=== PATIENT | female | born 1955 | race African-American/Black ===

== ENCOUNTER 2017-09-20 14:20 | Emergency (ER) | payer MEDICARE, OTHER ==
[2017-09-20 15:21] LABS: #Basophils 0.1 thou/uL (0.0-0.2); #Eosinphils 0.2 thou/uL (0.0-0.7); #Lymphocytes 2.7 thou/uL (1.20-3.40); #Monocytes 0.9 thou/uL (0.11-0.59); #Neutrophils 3.5 thou/uL (1.40-6.50); %Basophils 1.4 % (0.0-1.0); %Eosinophils 3.3 % (0.0-10.0); %Lymphocytes 36.2 % (21.0-51.0); %Monocytes 11.6 % (0.0-10.0); Hematocrit 36.5 % (36.0-47.0); Mean Platelet Volume 8.8 fL (7.4-10.4); Red Blood Cell (RBC) Count 3.96 mill/uL (4.20-5.40); White Blood Cell (WBC) Count 7.4 thou/uL (4.8-10.8)
[2017-09-20 15:42] LABS: ALT (SGPT) 15 U/L (8-55); AST (SGOT) 16 U/L (5-34); Alkaline Phosphatase 30 U/L (40-150); Anion Gap 14 mmol/L (10-20); BUN (Urea Nitrogen) 17 mg/dL (9.8-20.1); Bilirubin, Total 0.4 mg/dL (0.2-1.2); Calc. Creatinine Clearance 0 mL/min (70-130); Calcium 9.7 mg/dL (7.8-10.44); Carbon Dioxide 28 mmol/L (23-31); Chloride 103 mmol/L (98-107); Estimated GFR-MDRD 86; Globulin 3.1 g/dL (2.4-3.5); Lipase 7 U/L (8-78); Protein, Total 6.7 g/dL (6.0-8.3)
== END 2017-09-20 16:00 | disposition home or self-care (01) ==
LOC: ERS 14:20
DX: R19.7 Diarrhea, unspecified (principal); L73.9 Follicular disorder, unspecified; E11.9 Type 2 diabetes mellitus without complications; E78.5 Hyperlipidemia, unspecified; I10 Essential (primary) hypertension; G43.909 Migraine, unspecified, not intractable, without status migrainosus; F41.9 Anxiety disorder, unspecified; Z86.73 Personal history of transient ischemic attack (TIA), and cerebral infarction without residual deficits; Z79.4 Long term (current) use of insulin
CPT/HCPCS: 36415; 80053; 83690; 85025; 99284

== ENCOUNTER 2017-09-22 18:27 | Emergency (ER) | payer MEDICARE, OTHER ==
[2017-09-22 19:27] LABS: Hematocrit 37.9 % (36.0-47.0); Red Blood Cell (RBC) Count 4.06 mill/uL (4.20-5.40); White Blood Cell (WBC) Count 6.9 thou/uL (4.8-10.8)
[2017-09-22 19:40] LABS: Lactic Acid - Sepsis 3.2 mmol/L (0.5-2.2)
[2017-09-22 19:47] LABS: ALT (SGPT) 16 U/L (8-55); AST (SGOT) 12 U/L (5-34); Alkaline Phosphatase 36 U/L (40-150); Anion Gap 13 mmol/L (10-20); BUN (Urea Nitrogen) 18 mg/dL (9.8-20.1); Band 2 % (5-11); Bilirubin, Total 0.4 mg/dL (0.2-1.2); Calc. Creatinine Clearance 0 mL/min (70-130); Calcium 10.1 mg/dL (7.8-10.44); Carbon Dioxide 30 mmol/L (23-31); Chloride 97 mmol/L (98-107); Estimated GFR-MDRD 58; Globulin 3.2 g/dL (2.4-3.5); Neutrophil 54 % (42-75); Polychromasia SLIGHT = 2-3 cells (100X) (0-2/hpf); Reactive Lymphocytes 5 % (0-10)
[2017-09-22] MEDS ORDERED: Insulin Regular 300 UNITS/3 ML VIAL ONE (20:05)
[2017-09-22 20:25] LABS: Bilirubin Negative (Negative); Blood, Urine Negative (Negative); Glucose, Urine (Dipstick) >=1000 mg/dL (Negative); Ketone, Urine Negative (Negative); Nitrite Negative (Negative); Protein, Urine (Dipstick) Trace mg/dL (Neg-Trace)
--- NOTE | 2017-09-22 20:48 | RAD ---
LEFT FOOT THREE VIEWS: Comparison: 07-18-17 FINDINGS: Stable pes planus deformity of the first digit. Stable degenerative change of the midfoot with osteo phyte formation. There is associated dorsal soft tissue swelling. Stable spurring of the plantar anthony caneus. Lisfranc alignment is maintained. Fracture is not appreciated. Stable positioning of the sec ond to fifth digit. IMPRESSION: Stable chronic changes. POS: [facility]
[2017-09-22] MEDS ORDERED: HYDROcodone/Acetaminophen 5/325 mg Tablet ONE (21:57)
== END 2017-09-22 22:09 | disposition home or self-care (01) ==
LOC: ERS 18:27
DX: E11.65 Type 2 diabetes mellitus with hyperglycemia (principal); I10 Essential (primary) hypertension; G43.909 Migraine, unspecified, not intractable, without status migrainosus; F41.9 Anxiety disorder, unspecified; E78.5 Hyperlipidemia, unspecified; Z86.73 Personal history of transient ischemic attack (TIA), and cerebral infarction without residual deficits; Z79.4 Long term (current) use of insulin; Z79.899 Other long term (current) drug therapy
CPT/HCPCS: 36415; 36416; 80053; 81003; 83605; 85025; 87086; 96361; 96374; J1815

== ENCOUNTER 2017-10-20 13:16 | Emergency (ER) | payer MEDICARE, OTHER ==
[2017-10-20 14:04] LABS: Bilirubin Negative (Negative); Blood, Urine Small (Negative); Glucose, Urine (Dipstick) >=1000 mg/dL (Negative); Ketone, Urine Trace mg/dL (Negative); Nitrite Negative (Negative); Protein, Urine (Dipstick) Trace mg/dL (Neg-Trace); Urobilinogen 0.2 mg/dL (0.2-1.0)
[2017-10-20 14:07] LABS: Bacteria/HPF None Seen HPF (None Seen); Hyaline Casts/LPF 0-3 HYALINE CAST LPF (0-3 Hyaline); Squamous Epithelial 0-3 HPF (0-3); WBC/HPF 0-3 HPF (0-3)
== END 2017-10-20 14:29 | disposition home or self-care (01) ==
LOC: ERS 13:16
DX: R10.9 Unspecified abdominal pain (principal); E11.9 Type 2 diabetes mellitus without complications; E78.5 Hyperlipidemia, unspecified; I10 Essential (primary) hypertension; G43.909 Migraine, unspecified, not intractable, without status migrainosus; F41.9 Anxiety disorder, unspecified; Z79.4 Long term (current) use of insulin; Z86.73 Personal history of transient ischemic attack (TIA), and cerebral infarction without residual deficits; Z79.899 Other long term (current) drug therapy
CPT/HCPCS: 81003; 81015; 99284

== ENCOUNTER 2017-11-02 10:37 | Emergency (ER) | payer MEDICARE, OTHER ==
[2017-11-02] MEDS ORDERED: Morphine 4 MG/ML VIAL ONE (13:05)
[2017-11-02 14:26] LABS: Bilirubin Negative (Negative); Blood, Urine Negative (Negative); Glucose, Urine (Dipstick) 250 mg/dL (Negative); Ketone, Urine 15 mg/dL (Negative); Nitrite Negative (Negative); Protein, Urine (Dipstick) 100 mg/dL (Neg-Trace)
[2017-11-02 14:29] LABS: Bacteria/HPF None Seen HPF (None Seen); Hyaline Casts/LPF 0-3 HYALINE CAST LPF (0-3 Hyaline); RBC/HPF 0-3 HPF (0-3); Squamous Epithelial 0-3 HPF (0-3); WBC/HPF 0-3 HPF (0-3)
--- NOTE | 2017-11-02 14:43 | RAD ---
3 VIEWS LUMBAR SPINE: Date: 11/02/17 HISTORY: Back pain. FINDINGS: AP, lateral, and coned-down views of lumbar spine obtained. Images demonstrate five non-rib bearing lumbar vertebra. Disc space height loss is seen at multiple l evels. Anterior osteophytes seen throughout the lumbar spine. No evidence of acute fractures, subluxa tions, or bony lesions seen. IMPRESSION: No evidence of acute lumbar spine abnormalities. POS: [facility]
--- NOTE | 2017-11-02 15:07 | CT ---
NONCONTRAST ENHANCED CT IMAGES OF ABODMEN AND PELVIS: Date: 11/02/17 HISTORY: 62-year-old with history of back pain. FINDINGS: Noncontrast enhanced CT images of abdomen and pelvis demonstrates the lung bases to be unremarkable. No evidence of free intraperitoneal air seen. The liver and spleen are unremarkable. The pancreas is unremarkable. A gallbladder is not visualized. Adrenal glands are unremarkable. The kidneys are unremarkable. No evidence of renal calculi seen. No evidence of hydroureteronephrosis is seen. No evidence of periaortic lymphadenopathy is seen. No dil ated loops of small bowel or colon present. IMPRESSION: Unremarkable noncontrast enhanced CT images of the abdomen and pelvis. Incidentally noted multilevel lumbar disc degenerative and spinal stenotic changes seen. POS: [facility]
== END 2017-11-02 15:59 | disposition home or self-care (01) ==
LOC: ERS 10:37
DX: M54.16 Radiculopathy, lumbar region (principal); E78.5 Hyperlipidemia, unspecified; I10 Essential (primary) hypertension; G43.909 Migraine, unspecified, not intractable, without status migrainosus; F41.9 Anxiety disorder, unspecified; E11.9 Type 2 diabetes mellitus without complications; Z86.73 Personal history of transient ischemic attack (TIA), and cerebral infarction without residual deficits; Z79.899 Other long term (current) drug therapy; Z79.4 Long term (current) use of insulin
CPT/HCPCS: 72100; 74176; 81003; 81015; 96372; 99284; J2270

== ENCOUNTER 2017-11-02 18:36 | Emergency (ER) | payer MEDICARE, OTHER | END 2017-11-02 21:05 | disposition home or self-care (01) | LOC: ERS 18:36 | DX: R11.0 Nausea (principal); R10.9 Unspecified abdominal pain; T39.1X5A Adverse effect of 4-Aminophenol derivatives, initial encounter; T40.2X5A Adverse effect of other opioids, initial encounter; E11.9 Type 2 diabetes mellitus without complications; E78.5 Hyperlipidemia, unspecified; I10 Essential (primary) hypertension; G43.909 Migraine, unspecified, not intractable, without status migrainosus; F41.9 Anxiety disorder, unspecified; Z79.4 Long term (current) use of insulin; Z79.899 Other long term (current) drug therapy | CPT/HCPCS: 99284 ==

== ENCOUNTER 2017-11-13 16:44 | Emergency (ER) | payer MEDICARE, OTHER ==
[2017-11-13] MEDS ORDERED: Morphine 4 MG/ML VIAL ONE (20:00)
[2017-11-13] MEDS ORDERED: Dexamethasone 10 MG/ML VIAL ONE (20:01)
== END 2017-11-13 20:28 | disposition home or self-care (01) ==
LOC: ERS 16:44
DX: G89.29 Other chronic pain (principal); M54.42 Lumbago with sciatica, left side; M54.41 Lumbago with sciatica, right side; E78.5 Hyperlipidemia, unspecified; I10 Essential (primary) hypertension; Z86.73 Personal history of transient ischemic attack (TIA), and cerebral infarction without residual deficits; G43.909 Migraine, unspecified, not intractable, without status migrainosus; F41.9 Anxiety disorder, unspecified; Z79.4 Long term (current) use of insulin; Z79.899 Other long term (current) drug therapy
CPT/HCPCS: 96372; J1100; J2270

== ENCOUNTER 2017-11-20 04:02 | Emergency (ER) | payer MEDICARE, OTHER ==
[2017-11-20] MEDS ORDERED: Dexamethasone 4 MG TAB ONE (05:09)
[2017-11-20] MEDS ORDERED: HYDROcodone/Acetaminophen 5/325 mg Tablet ONE (05:10)
== END 2017-11-20 05:20 | disposition home or self-care (01) ==
LOC: ERS 04:02
DX: M54.41 Lumbago with sciatica, right side (principal); E11.9 Type 2 diabetes mellitus without complications; E78.5 Hyperlipidemia, unspecified; I10 Essential (primary) hypertension; G43.909 Migraine, unspecified, not intractable, without status migrainosus; F41.9 Anxiety disorder, unspecified; Z86.73 Personal history of transient ischemic attack (TIA), and cerebral infarction without residual deficits; Z79.4 Long term (current) use of insulin; Z79.899 Other long term (current) drug therapy
CPT/HCPCS: 99283; J8540

== ENCOUNTER 2017-12-12 23:59 | Emergency (ER) | payer MEDICARE, OTHER | END 2017-12-13 01:33 | disposition home or self-care (01) | LOC: ERS 23:59 | DX: L03.116 Cellulitis of left lower limb (principal); L03.115 Cellulitis of right lower limb; E11.42 Type 2 diabetes mellitus with diabetic polyneuropathy; I10 Essential (primary) hypertension; Z79.4 Long term (current) use of insulin; Z79.899 Other long term (current) drug therapy | CPT/HCPCS: 99283 ==

== ENCOUNTER 2017-12-15 23:17 | Observation (INO) | payer MEDICARE ==
[2017-12-16 00:58] LABS: #Basophils 0.1 thou/uL (0.0-0.2); #Eosinphils 0.2 thou/uL (0.0-0.7); #Lymphocytes 2.5 thou/uL (1.20-3.40); #Monocytes 0.6 thou/uL (0.11-0.59); #Neutrophils 1.9 thou/uL (1.40-6.50); %Eosinophils 3.9 % (0.0-10.0); %Lymphocytes 46.9 % (21.0-51.0); %Monocytes 11.5 % (0.0-10.0); %Neutrophils 35.7 % (42.0-75.0); Hemoglobin 11.8 g/dL (12.0-16.0); Mean Corpuscular HGB CONC 34.4 g/dL (32.0-36.0); Mean Corpuscular Volume 93.1 fl (81.0-99.0); Mean Platelet Volume 8.9 fL (7.4-10.4); Platelet Count 190 thou/uL (130-400); Red Blood Cell (RBC) Count 3.69 mill/uL (4.20-5.40); White Blood Cell (WBC) Count 5.4 thou/uL (4.8-10.8)
[2017-12-16 01:20] LABS: ALT (SGPT) 7 U/L (8-55); AST (SGOT) 19 U/L (5-34); Albumin 3.4 g/dL (3.4-4.8); Alkaline Phosphatase 38 U/L (40-150); Anion Gap 13 mmol/L (10-20); BUN (Urea Nitrogen) 19 mg/dL (9.8-20.1); Bilirubin, Total 0.3 mg/dL (0.2-1.2); Calc. Creatinine Clearance 0 mL/min (70-130); Calcium 9.6 mg/dL (7.8-10.44); Carbon Dioxide 28 mmol/L (23-31); Chloride 102 mmol/L (98-107); Estimated GFR-MDRD Greater than 90; Globulin 3.1 g/dL (2.4-3.5); Glucose 140 mg/dL (80-115); Lipase 6 U/L (8-78); Potassium 3.3 mmol/L (3.5-5.1); Protein, Total 6.5 g/dL (6.0-8.3); Sodium 140 mmol/L (136-145)
[2017-12-16 01:23] LABS: CKMB 4.3 ng/mL (0-6.6); Troponin I 0.031 ng/mL (< 0.028)
[2017-12-16] MEDS ORDERED: Aspirin 325 MG TAB ONE (02:23)
[2017-12-16] MEDS ORDERED: Ondansetron HCl/PF 4 MG/2 ML Vial IVP PRN (03:08)
[2017-12-16] MEDS ORDERED: Acetaminophen 325 MG TAB PO PRN (03:08)
[2017-12-16] MEDS ORDERED: Ondansetron ODT 4 MG TAB SL PRN (03:08)
[2017-12-16 03:29] VITALS: BMI 32.9
[2017-12-16 05:32] LABS: Troponin I 0.029 ng/mL (< 0.028)
--- NOTE | 2017-12-16 07:50 | RAD ---
CHEST PA AND LATERAL: Date: 12/16/17 HISTORY: 62-year-old female with history of bilateral leg pain and diarrhea, sciatic nerve pain, chest pain. COMPARISON: 11/30/13. FINDINGS: Heart size is normal. The lungs are clear. Mild stable right hemidiaphragm elevation. Atherosclerosis of aorta. IMPRESSION: No acute intrathoracic disease. Atherosclerosis of aorta. Stable from prior study. POS: [facility]
[2017-12-16 07:56] LABS: Troponin I 0.032 ng/mL (< 0.028)
[2017-12-16] MEDS ORDERED: Ondansetron ODT 4 MG TAB PO PRN (12:56)
[2017-12-16] MEDS ORDERED: Clopidogrel Bisulfate 75 MG TAB PO SCH (14:30)
[2017-12-16] MEDS ORDERED: Lisinopril 20 MG TAB PO SCH (14:30)
[2017-12-16] MEDS ORDERED: Insulin Regular 300 UNITS/3 ML VIAL SC PRN (18:26)
[2017-12-16] MEDS ORDERED: Dextrose 50% Abboject 50 ML SYRINGE IVP PRN (18:26)
[2017-12-16] MEDS ORDERED: Dextrose 5% in Water 1,000 ML IV PRN (18:26)
[2017-12-16] MEDS ORDERED: Furosemide 40 MG TAB PO SCH (18:30)
[2017-12-16] MEDS: Fluticasone Propionate Nasal Spray 16 gm Bottle NASAL SCH (18:50)
[2017-12-16] MEDS: Potassium Chloride 20 MEQ TAB PO SCH ×2 (18:53→22:08)
[2017-12-16] MEDS: Clindamycin 150 MG CAP PO SCH (18:53)
[2017-12-16] MEDS: Insulin Regular 300 UNITS/3 ML VIAL SC PRN (18:55)
[2017-12-16] MEDS: Insulin Detemir 100 UNITS/ML 50 UNITS in Pre-Filled Syringe SC SCH (20:56)
[2017-12-16] MEDS: Rosuvastatin 20 MG TAB PO SCH (20:57)
[2017-12-16 21:26] LABS: Glucose Accucheck Confirmation 358 mg/dl (80-115)
[2017-12-16] MEDS: Acetaminophen/Codeine 30-300mg Tablet PO PRN (22:08)
[2017-12-17] MEDS: Fluticasone Propionate Nasal Spray 16 gm Bottle NASAL SCH ×4 (01:49→16:24)
[2017-12-17] MEDS: Acetaminophen/Codeine 30-300mg Tablet PO PRN (04:56)
[2017-12-17 05:27] LABS: Hemoglobin A1c 11.1 % (4.0-6.0)
[2017-12-17 05:53] LABS: Anion Gap 9 mmol/L (10-20); BUN (Urea Nitrogen) 10 mg/dL (9.8-20.1); Calc. Creatinine Clearance 130 mL/min (70-130); Calcium 8.9 mg/dL (7.8-10.44); Carbon Dioxide 29 mmol/L (23-31); Cardiac Risk 4.9 (Less than 4.5); Chloride 106 mmol/L (98-107); Cholesterol 196 mg/dl (< 200 Desired); Estimated GFR-MDRD Greater than 90; Glucose 223 mg/dL (80-115); HDL Cholesterol 40 mg/dL (>60 Neg Risk); LDL Cholesterol, Calculated 117 mg/dL; Potassium 3.4 mmol/L (3.5-5.1); Sodium 141 mmol/L (136-145); Triglycerides 193 mg/dL (Less than 150)
--- NOTE | 2017-12-17 05:54 | HP ---
DATE OF ADMISSION: 12/16/2017 CHIEF COMPLAINT: Chest pain and leg pain and swelling. HISTORY OF PRESENT ILLNESS: Ms. Berg is a 62-year-old -French female with past medical h istory of diabetes mellitus, hypertension, chronic leg pain, came because of swollen feet and chest p ain. The patient's pain is in the chest and retrosternal area, pressure-like, nonradiating, not asso ciated any shortness of breath, no palpitations, no dizziness, no nausea or vomiting. The patient al so noticed swelling in both lower extremities, which is getting worse and also her toes, there is philip dence of infection as well. The patient was already started on antibiotics before. In view of risk factors, patient is being admitted to rule out myocardial infarction. PAST MEDICAL HISTORY: 1. Diabetes mellitus, insulin-dependent. 2. Hypertension. 3. Hyperlipidemia. 4. History of cerebrovascular accident. 5. History of migraine headaches. PAST SURGICAL HISTORY: 1. Status post appendectomy. 2. Status post hysterectomy. 3. Status post thoracotomy. 4. Status post tonsillectomy. CURRENT MEDICATIONS: Tylenol No. 3 q.i.d. p.r.n., Plavix 75 mg daily, Farxiga 5 mg daily, Lantus ins ulin 15 units at bedtime and also on sliding scale, lisinopril 20 mg daily, Zofran p.r.n., Crestor 40 mg daily, spironolactone hydrochlorothiazide 1 tablet daily. ALLERGIES: SULFA. FAMILY HISTORY: Nothing of interest. SOCIAL HISTORY: The patient lives with family. No history of smoking. No history of alcohol intake . REVIEW OF SYSTEMS: Cardiovascular: Has chest pain. No shortness of breath. Respiratory: No fever or cough. Gastrointestinal: No nausea, noabdominal pain. Genitourinary: No dysuria. Central ner vous system: No headache, no dizziness. PHYSICAL EXAMINATION: GENERAL: The patient is alert, awake, oriented x3. VITAL SIGNS: Temperature 98, pulse 78, respirations 20, blood pressure 120/70. HEENT: Head is normocephalic, atraumatic. Pupils equal and reactive to light. Nasopharynx is pale and dry. Hard and soft palate, no lesions seen. SKIN: Skin turgor decreased. NECK: Supple. No JVD. LUNGS: Bilateral air entry, no rales, no rhonchi. HEART: S1, S2 regular. ABDOMEN: Soft, no distention, no tenderness. No organomegaly. CENTRAL NERVOUS SYSTEM: No focal deficits. EXTREMITIES: There is 2+ pitting edema both lower legs. Toes, there is a mild swelling there with s ome erythema and tenderness. LABORATORY DATA: CBC shows WBC 5.5, hemoglobin 11.8, hematocrit 34, platelets 190. Metabolic panel: Sodium 140, potassium 3.3, chloride 102, CO2 of 28, BUN 8, creatinine 0.9, glucose 140. CK-MB 4.0, troponin I 0.031. BNP 67. Chest x-ray no acute intrathoracic disease. EKG shows normal sinus rhyt hm, no acute ST-T wave changes seen. ASSESSMENT: 1. Chest pain, rule out myocardial infarction. 2. Leg edema. 3. Infected toes. 4. Insulin-dependent diabetes mellitus. 5. Hypertension. 6. Hyperlipidemia. 7. Chronic leg pain. 8. History of cerebrovascular accident. PLAN: 1. Vital signs q.4 hours. 2. Activity: As tolerated. 3. Allergies: No known drug allergies. 4. Hep-Lock. 5. Troponin I q.8 hours x2. 6. Accu-Chek a.c. and at bedtime, sliding scale mild with regular insulin. 7. Continue her home medications. 8. Cardiolite stress test in the morning. 9. Clindamycin 300 mg 3 times daily.
[2017-12-17 07:38] LABS: Glucose Accucheck Confirmation 190 mg/dl (80-115)
[2017-12-17] MEDS ORDERED: Spironolactone/Hctz 25 MG/25 MG TABLET PO SCH (09:00)
[2017-12-17] MEDS ORDERED: FARXIGA 5 MG PO SCH (09:00)
[2017-12-17] MEDS ORDERED: Clopidogrel Bisulfate 75 MG TAB ONE (10:45)
[2017-12-17] MEDS: Lisinopril 20 MG TAB PO SCH (10:50)
[2017-12-17] MEDS: Clopidogrel Bisulfate 75 MG TAB PO SCH (10:51)
[2017-12-17] MEDS: Clindamycin 150 MG CAP PO SCH ×3 (10:51→21:06)
[2017-12-17 11:56] LABS: Glucose Accucheck Confirmation 157 mg/dl (80-115)
[2017-12-17] MEDS: Insulin Regular 300 UNITS/3 ML VIAL SC PRN (16:36)
[2017-12-17 17:34] LABS: Glucose Accucheck Confirmation 313 mg/dl (80-115)
[2017-12-17] MEDS: Rosuvastatin 20 MG TAB PO SCH (21:07)
[2017-12-17] MEDS: Insulin Detemir 100 UNITS/ML 50 UNITS in Pre-Filled Syringe SC SCH (21:07)
[2017-12-17 21:24] LABS: Glucose Accucheck Confirmation 240 mg/dl (80-115)
[2017-12-18] MEDS: Fluticasone Propionate Nasal Spray 16 gm Bottle NASAL SCH ×4 (03:30→20:36)
[2017-12-18] MEDS: Clindamycin 150 MG CAP PO SCH ×3 (05:47→20:23)
[2017-12-18] MEDS: Clopidogrel Bisulfate 75 MG TAB PO SCH (05:48)
[2017-12-18 07:48] LABS: Glucose Accucheck Confirmation 101 mg/dl (80-115)
[2017-12-18] MEDS ORDERED: Sodium Chloride 0.9% 10 ML ONE (07:57)
[2017-12-18] MEDS ORDERED: Hydrochlorothiazide 25 MG TAB PO SCH (09:00)
[2017-12-18] MEDS ORDERED: Spironolactone 25 MG TAB PO SCH (09:00)
[2017-12-18 12:10] LABS: Glucose Accucheck Confirmation 233 mg/dl (80-115)
[2017-12-18] MEDS: Lisinopril 20 MG TAB PO SCH (12:42)
[2017-12-18] MEDS: Insulin Regular 300 UNITS/3 ML VIAL SC PRN ×2 (12:59→16:15)
[2017-12-18] MEDS ORDERED: ADENOSINE 60 MG/20 ML VIAL ONE (15:47)
[2017-12-18 17:27] LABS: Glucose Accucheck Confirmation 309 mg/dl (80-115)
[2017-12-18] MEDS: Rosuvastatin 20 MG TAB PO SCH (20:23)
[2017-12-18] MEDS: Insulin Detemir 100 UNITS/ML 50 UNITS in Pre-Filled Syringe SC SCH (20:23)
[2017-12-18] MEDS ORDERED: Furosemide 40 MG TAB PO SCH (20:30)
[2017-12-18 21:36] LABS: Glucose Accucheck Confirmation 303 mg/dl (80-115)
[2017-12-19] MEDS: Fluticasone Propionate Nasal Spray 16 gm Bottle NASAL SCH ×3 (03:25→11:56)
[2017-12-19] MEDS: Clopidogrel Bisulfate 75 MG TAB PO SCH (05:49)
[2017-12-19 08:15] LABS: Glucose Accucheck Confirmation 113 mg/dl (80-115)
[2017-12-19] MEDS ORDERED: Hydrochlorothiazide 25 MG TAB PO SCH (09:00)
[2017-12-19] MEDS ORDERED: Furosemide 40 MG TAB PO SCH (09:00)
--- NOTE | 2017-12-19 11:46 | NM ---
CARDIAC SPECT: CLINICAL HISTORY: 62-year-old female with chest pain. TECHNIQUE: A myocardial perfusion scan was performed using the single isotope two day protocol with 33 mCi techn etium-99m sestamibi injected intravenously for both stress and rest images. Pharmacologic stress with Adenosine was monitored and interpreted by Dr. Morel. FINDINGS: Homogeneous tracer distribution is seen in the myocardial segments on stress and rest images without fixed or reversible defects. GATED SPECT LVEF: 68%. WALL MOTION EXAM: Normal. IMPRESSION: Normal myocardial perfusion scan. POS: [facility]
[2017-12-19 11:55] VITALS: BP 130/66; TEMP 98.4
[2017-12-19] MEDS: Lisinopril 20 MG TAB PO SCH (11:55)
[2017-12-19] MEDS ORDERED: Spironolactone 25 MG TAB PO SCH (12:00)
--- NOTE | 2017-12-20 15:04 | DIS ---
DATE OF ADMISSION: 12/16/2017 DATE OF DISCHARGE: 12/19/2017 ADMITTING DIAGNOSES: 1. Chest pain, rule out myocardial infarction. 2. Leg edema. 3. Infected toes. 4. Insulin-dependent diabetes mellitus. 5. Hypertension. 6. Hyperlipidemia. 7. Chronic leg pain. 8. Status post cerebrovascular accident. FINAL DIAGNOSES: 1. Chest pain, no evidence of acute myocardial infarction, negative Cardiolite stress test. 2. Leg edema, improved. 3. Insulin-dependent diabetes mellitus, uncontrolled. 4. Hypertension. 5. Hyperlipidemia. 6. Chronic leg pain. BRIEF SUMMARY OF HOSPITAL COURSE: Ms. Berg is a 62-year-old - [place] Islander female admitted because of chest pain. The patient has risk factors. In view of that, she was admitted to rule out myocardial infarction. Serial cardiac enzymes were done and they were within normal limits. A Cardiolite stress test was done and it was reported as negative for ischemia. The patient did not have any more chest pain, the leg edema also improved with Lasix. In view of improvement, the patient was discharged. At the time of discharge, she was stable. Her vital signs were stable. Lungs were clear. Heart sounds regular. Abdomen soft, nontender. Bowel sounds present. DISCHARGE MEDICATIONS: Include Lantus insulin 50 units daily, lisinopril 20 mg daily, Plavix 75 mg daily, Tylenol with Codeine p.r.n., Zofran p.r.n., spironolactone with hydrochlorothiazide daily, Crestor 40 mg daily, Farxiga 5 mg daily, Flonase nasal spray daily, clindamycin t.i.d. 300 mg, The patient also takes Humalog insulin 25 units 3 times daily. DISCHARGE INSTRUCTIONS: She will continue with ADA diet and come for followup in 2 weeks. JUAN J
--- NOTE | 2018-01-20 14:07 | STRESS ---
Acquisition Time: 2017-12-18 09:20:35 Total Exercise Time: 00:04:00 Test Indications: CHEST PAIN Medications: Protocol: ADENOSINE Max HR: 090 BPM 57% of Pred: 156 BPM Max BP: 144/084 mmHG Max Work Load: 1.0 METS RESTING ECG: NORMAL SINUS RHYTHM AT 74 BPM WITH PACs SYMPTOMS: NONE APPROPRIATE BLOOD PRESSURE RESPONSE FOR ADENOSINE ECTOPY: NONE ECG RESPONSE: NO SIGNIFICANT CHANGES INTERPRETATION: NEGATIVE ECG/AWAIT NUCLEAR IMAGES FOR DEFINITIVE DIAGNOSIS Confirmed by DR. Donnie CARBALLO ([id number]), research editor PATIENCE INFANTE ([id number]) on 01/20/2018 2:07:21 PM Referred By: Lora MADRID Confirmed By:DR. Donnie CARBALLO
== END 2017-12-19 14:20 | disposition home or self-care (01) ==
LOC: ERS 23:17 → INTOOBSV 12-16 01:44 → 2NO 12-16 01:44 → OBSVTOIN 12-16 01:44
PROVIDERS: ADMIT Internal Medicine; ATTEND Internal Medicine
DX: R07.2 Precordial pain (principal); R60.0 Localized edema; L08.9 Local infection of the skin and subcutaneous tissue, unspecified; E10.9 Type 1 diabetes mellitus without complications; I10 Essential (primary) hypertension; E78.5 Hyperlipidemia, unspecified; M79.606 Pain in leg, unspecified; G89.29 Other chronic pain; G43.909 Migraine, unspecified, not intractable, without status migrainosus; Z79.02 Long term (current) use of antithrombotics/antiplatelets; Z79.51 Long term (current) use of inhaled steroids; Z79.4 Long term (current) use of insulin; Z79.899 Other long term (current) drug therapy; Z88.2 Allergy status to sulfonamides; Z88.1 Allergy status to other antibiotic agents; Z90.49 Acquired absence of other specified parts of digestive tract; Z90.710 Acquired absence of both cervix and uterus; Z98.890 Other specified postprocedural states; Z90.89 Acquired absence of other organs; Z86.73 Personal history of transient ischemic attack (TIA), and cerebral infarction without residual deficits
CPT/HCPCS: 71046; 78452; 80048; 80053; 80061; 82553; 82947 ×5; 82962 ×4; 83036; 83690; 83880; 84484 ×2; 85025; 93005; 93017; 99283; 99284; A9500; G0378; 36415; 36416; A4216; J0153; J1815

== ENCOUNTER 2018-01-05 21:41 | Emergency (ER) | payer MEDICARE ==
[2018-01-05 23:14] LABS: #Basophils 0.1 thou/uL (0.0-0.2); #Eosinphils 0.3 thou/uL (0.0-0.7); #Lymphocytes 2.2 thou/uL (1.20-3.40); #Monocytes 0.7 thou/uL (0.11-0.59); #Neutrophils 2.3 thou/uL (1.40-6.50); %Basophils 1.4 % (0.0-1.0); %Lymphocytes 39.5 % (21.0-51.0); %Monocytes 12.4 % (0.0-10.0); %Neutrophils 41.8 % (42.0-75.0); Hemoglobin 11.4 g/dL (12.0-16.0); Mean Corpuscular HGB CONC 34.4 g/dL (32.0-36.0); Mean Corpuscular Hemoglobin 32.1 pg (27.0-31.0); Mean Corpuscular Volume 93.2 fl (81.0-99.0); Mean Platelet Volume 8.9 fL (7.4-10.4); Platelet Count 165 thou/uL (130-400); RBC Distribution Width 11.8 % (11.5-14.5); Red Blood Cell (RBC) Count 3.54 mill/uL (4.20-5.40); White Blood Cell (WBC) Count 5.6 thou/uL (4.8-10.8)
[2018-01-05 23:36] LABS: INR-International Normal Ratio 0.9; Prothrombin Time 11.9 SEC (12.0-14.7)
[2018-01-05 23:38] LABS: ALT (SGPT) 8 U/L (8-55); AST (SGOT) 13 U/L (5-34); Albumin 3.4 g/dL (3.4-4.8); Alkaline Phosphatase 39 U/L (40-150); Anion Gap 12 mmol/L (10-20); BUN (Urea Nitrogen) 17 mg/dL (9.8-20.1); Bilirubin, Total 0.2 mg/dL (0.2-1.2); CK (CPK) 160 U/L (29-168); Calc. Creatinine Clearance 0 mL/min (70-130); Calcium 9.3 mg/dL (7.8-10.44); Carbon Dioxide 30 mmol/L (23-31); Chloride 106 mmol/L (98-107); Estimated GFR-MDRD 85; Globulin 2.8 g/dL (2.4-3.5); Glucose 185 mg/dL (80-115); Potassium 3.1 mmol/L (3.5-5.1); Protein, Total 6.2 g/dL (6.0-8.3); Sodium 145 mmol/L (136-145)
[2018-01-05 23:42] LABS: Troponin I 0.034 ng/mL (< 0.028)
--- NOTE | 2018-01-05 23:55 | CT ---
CT HEAD WITHOUT CONTRAST: Date: 01/05/18 Multiple axial tomograms obtained through the head without IV enhancement. HISTORY: Blurred vision. Hyperglycemia. FINDINGS: Ventricles have normal size and position. There is no evidence of intracranial mass or hemorrhage. No infarct or other acute process seen. IMPRESSION: No acute abnormality. POS: [facility]
[2018-01-06 01:37] LABS: Troponin I 0.034 ng/mL (< 0.028)
[2018-01-06] MEDS ORDERED: Potassium Chloride 20 MEQ TAB ONE (03:25)
== END 2018-01-06 03:21 | disposition home or self-care (01) ==
LOC: ERS 21:41
DX: H53.8 Other visual disturbances (principal); H54.8 Legal blindness, as defined in USA; E11.9 Type 2 diabetes mellitus without complications; G43.909 Migraine, unspecified, not intractable, without status migrainosus; I10 Essential (primary) hypertension; E78.5 Hyperlipidemia, unspecified; F41.9 Anxiety disorder, unspecified; Z79.4 Long term (current) use of insulin; Z86.73 Personal history of transient ischemic attack (TIA), and cerebral infarction without residual deficits; Z79.02 Long term (current) use of antithrombotics/antiplatelets; Z79.899 Other long term (current) drug therapy
CPT/HCPCS: 36415; 36416; 70450; 80053; 82553; 84484; 85025; 85610; 85730

== ENCOUNTER 2018-01-16 16:09 | Emergency (ER) | payer MEDICARE ==
[2018-01-16 17:11] LABS: #Basophils 0.1 thou/uL (0.0-0.2); #Eosinphils 0.2 thou/uL (0.0-0.7); #Lymphocytes 1.8 thou/uL (1.20-3.40); #Monocytes 0.6 thou/uL (0.11-0.59); #Neutrophils 2.5 thou/uL (1.40-6.50); %Basophils 1.7 % (0.0-1.0); %Eosinophils 4.1 % (0.0-10.0); %Lymphocytes 34.8 % (21.0-51.0); %Monocytes 11.3 % (0.0-10.0); %Neutrophils 48.2 % (42.0-75.0); Hemoglobin 11.8 g/dL (12.0-16.0); Mean Corpuscular HGB CONC 33.4 g/dL (32.0-36.0); Mean Corpuscular Hemoglobin 31.5 pg (27.0-31.0); Mean Corpuscular Volume 94.4 fl (81.0-99.0); Mean Platelet Volume 8.6 fL (7.4-10.4); Platelet Count 181 thou/uL (130-400); RBC Distribution Width 11.6 % (11.5-14.5); Red Blood Cell (RBC) Count 3.75 mill/uL (4.20-5.40); White Blood Cell (WBC) Count 5.1 thou/uL (4.8-10.8)
[2018-01-16 17:32] LABS: ALT (SGPT) 9 U/L (8-55); AST (SGOT) 13 U/L (5-34); Albumin 3.6 g/dL (3.4-4.8); Alkaline Phosphatase 36 U/L (40-150); Anion Gap 13 mmol/L (10-20); BUN (Urea Nitrogen) 18 mg/dL (9.8-20.1); Bilirubin, Total 0.4 mg/dL (0.2-1.2); CK (CPK) 187 U/L (29-168); Calc. Creatinine Clearance 0 mL/min (70-130); Calcium 9.7 mg/dL (7.8-10.44); Carbon Dioxide 29 mmol/L (23-31); Chloride 100 mmol/L (98-107); Estimated GFR-MDRD 76; Globulin 2.9 g/dL (2.4-3.5); Glucose 294 mg/dL (80-115); Potassium 3.5 mmol/L (3.5-5.1); Protein, Total 6.5 g/dL (6.0-8.3); Sodium 138 mmol/L (136-145)
[2018-01-16 17:33] LABS: INR-International Normal Ratio 0.9; PTT 27.5 SEC (22.9-36.1); Prothrombin Time 12.5 SEC (12.0-14.7)
[2018-01-16 17:38] LABS: CKMB 4.1 ng/mL (0-6.6); Troponin I 0.037 ng/mL (< 0.028)
--- NOTE | 2018-01-16 17:55 | RAD ---
CHEST ONE VIEW 01/16/18 HISTORY: Dyspnea. COMPARISON: Chest radiograph 12/16/17. FINDINGS: The lungs are clear. No pneumothorax or effusion. The cardiac silhouette and mediastinal contours are similar. There is a large subacrominal osteophyte of both shoulders. IMPRESSION: No acute intrathoracic abnormality. Lung hypoinflation and vascular crowding. POS: [facility]
--- NOTE | 2018-01-16 19:33 | CT ---
CT BRAIN WITHOUT CONTRAST 01/16/18 HISTORY: TIA. Stroke. COMPARISON: CT brain 01/05/18. FINDINGS: No acute territorial infarct or hemorrhage. No midline shift or mass effect. Ventricular size and ext ra-axial CSF spaces are normal. Calvarium is intact. The paranasal sinuses and mastoids are clear. Moderate vascular calcifications i ntradural vertebral arteries. IMPRESSION: No acute intracranial abnormality. No significant change. POS: [facility]
[2018-01-16] MEDS ORDERED: Meclizine HCl 25 MG TAB ONE (20:59)
[2018-01-16] MEDS ORDERED: Aspirin 325 MG TAB ONE (21:01)
== END 2018-01-16 21:55 | disposition home or self-care (01) ==
LOC: ERS 16:09
DX: R42 Dizziness and giddiness (principal); E11.9 Type 2 diabetes mellitus without complications; E78.5 Hyperlipidemia, unspecified; I10 Essential (primary) hypertension; G43.909 Migraine, unspecified, not intractable, without status migrainosus; F41.9 Anxiety disorder, unspecified; Z86.73 Personal history of transient ischemic attack (TIA), and cerebral infarction without residual deficits; Z79.4 Long term (current) use of insulin; Z79.899 Other long term (current) drug therapy
CPT/HCPCS: 36415; 70450; 71045; 80053; 82553; 84484; 85025; 85610; 85730; 93005; 94760

== ENCOUNTER 2018-02-17 15:20 | Emergency (ER) | payer MEDICARE ==
[2018-02-17 17:20] LABS: #Basophils 0.1 thou/uL (0.0-0.2); #Eosinphils 0.2 thou/uL (0.0-0.7); #Lymphocytes 2.1 thou/uL (1.20-3.40); #Monocytes 0.5 thou/uL (0.11-0.59); #Neutrophils 2.2 thou/uL (1.40-6.50); %Basophils 1.3 % (0.0-1.0); %Eosinophils 4.4 % (0.0-10.0); %Lymphocytes 40.2 % (21.0-51.0); Hemoglobin 12.2 g/dL (12.0-16.0); Mean Corpuscular HGB CONC 34.2 g/dL (32.0-36.0); Mean Corpuscular Hemoglobin 31.2 pg (27.0-31.0); Mean Corpuscular Volume 91.2 fl (81.0-99.0); Mean Platelet Volume 8.4 fL (7.4-10.4); Platelet Count 177 thou/uL (130-400); RBC Distribution Width 11.9 % (11.5-14.5); White Blood Cell (WBC) Count 5.1 thou/uL (4.8-10.8)
[2018-02-17 17:43] LABS: ALT (SGPT) 12 U/L (8-55); AST (SGOT) 20 U/L (5-34); Albumin 3.7 g/dL (3.4-4.8); Alkaline Phosphatase 38 U/L (40-150); Anion Gap 13 mmol/L (10-20); BUN (Urea Nitrogen) 16 mg/dL (9.8-20.1); Bilirubin, Total 0.2 mg/dL (0.2-1.2); Calc. Creatinine Clearance 0 mL/min (70-130); Calcium 9.6 mg/dL (7.8-10.44); Carbon Dioxide 30 mmol/L (23-31); Chloride 103 mmol/L (98-107); Estimated GFR-MDRD 86; Globulin 3.1 g/dL (2.4-3.5); Glucose 210 mg/dL (80-115); Potassium 3.3 mmol/L (3.5-5.1); Protein, Total 6.8 g/dL (6.0-8.3); Sodium 143 mmol/L (136-145)
[2018-02-17 18:55] LABS: Bilirubin Negative (Negative); Blood, Urine Negative (Negative); Clarity CLEAR (Clear); Glucose, Urine (Dipstick) >=1000 mg/dL (Negative); Leukocyte Small (Negative); Nitrite Negative (Negative); Protein, Urine (Dipstick) Negative (Neg-Trace); Specific Gravity, Urine 1.026 (1.002-1.036); Urobilinogen 0.2 mg/dL (0.2-1.0); pH, Urine 6.5 (5.0-9.0)
[2018-02-17 18:58] LABS: Bacteria/HPF None Seen HPF (None Seen); Hyaline Casts/LPF 0-3 HYALINE CAST LPF (0-3 Hyaline); Pathc Cast-AUWi Flag 0.58 (0-2.49); RBC/HPF 0-3 HPF (0-3); Yeast-AUWi Flag 20.6 (0-25.0)
[2018-02-17] MEDS ORDERED: Furosemide 40 MG/4 ML VIAL ONE (18:58)
[2018-02-17] MEDS ORDERED: Potassium Chloride 20 MEQ TAB ONE (18:58)
--- NOTE | 2018-02-17 20:04 | ULT ---
BILATERAL LOWER EXTREMITY VENOUS DOPPLER DUPLEX ULTRASOUND: CPT: 02456 ICD-10-PCS: B54D INDICATIONS: Bilateral leg pain. TECHNIQUE: Color-flow Doppler, spectral wave-form analysis of pulsed Doppler, and roberson-scale imaging with compre ssion and augmentation were used to evaluate the bilateral common femoral, femoral, popliteal, cable former ior tibial, and superficial femoral veins, and the proximal portions of the profunda femoral and grea ter saphenous veins. FINDINGS: Appropriate compressibility and flow within the imaged deep venous system of each lower extremity pre sent. IMPRESSION: No deep venous thrombosis within the bilateral lower extremities. POS: [facility]
[2018-02-17 20:25] LABS: CKMB 5.5 ng/mL (0-6.6); Troponin I 0.033 ng/mL (< 0.028)
--- NOTE | 2018-02-17 20:51 | RAD ---
FRONTAL VIEW CHEST: INDICATIONS: Dyspnea. COMPARISON: 01/16/2018 FINDINGS: The cardiac silhouette is stable. There is mild patchy bilateral perihilar opacity. Stable elevatio n of the left hemidiaphragm. Mild linear density in the left lateral lung base. Leads overly the ch est, limiting detail. IMPRESSION: 1. Mild patchy bilateral perihilar opacities and basilar opacification, which may relate to edema or atelectasis. 2. Stable elevation of the left hemidiaphragm. POS: [facility]
--- NOTE | 2018-04-26 14:44 | EKG ---
Test Reason : Blood Pressure : / mmHG Vent. Rate : 074 BPM Atrial Rate : 075 BPM P-R Int : 000 ms QRS Dur : 060 ms QT Int : 382 ms P-R-T Axes : 000 -08 -46 degrees QTc Int : 424 ms Normal sinus rhythm Nonspecific ST and T wave abnormality Abnormal ECG Confirmed by JUDITH HONG, NATHAN ([id number]), development editor SANJAY AGUIRRE ([id number]) on 04/26/2018 2:44:15 PM Referred By: Confirmed By:NATHAN WONG MD
== END 2018-02-17 20:50 | disposition home or self-care (01) ==
LOC: ERS 15:20
DX: I11.0 Hypertensive heart disease with heart failure (principal); I50.9 Heart failure, unspecified; N39.0 Urinary tract infection, site not specified; E87.6 Hypokalemia; E10.9 Type 1 diabetes mellitus without complications; H54.40 Blindness, one eye, unspecified eye; E78.5 Hyperlipidemia, unspecified; G43.909 Migraine, unspecified, not intractable, without status migrainosus; F41.9 Anxiety disorder, unspecified; Z86.73 Personal history of transient ischemic attack (TIA), and cerebral infarction without residual deficits; Z79.4 Long term (current) use of insulin; Z79.02 Long term (current) use of antithrombotics/antiplatelets; Z79.899 Other long term (current) drug therapy; M79.604 Pain in right leg; M79.605 Pain in left leg
CPT/HCPCS: 36415; 71045; 80053; 81001; 82550; 82553; 83880; 84484; 85025; 93005; 93970; 96374; J1940

== ENCOUNTER 2018-03-02 02:50 | Observation (INO) | payer MEDICARE ==
[2018-03-02 04:32] LABS: ALT (SGPT) 13 U/L (8-55); AST (SGOT) 17 U/L (5-34); Albumin 3.8 g/dL (3.4-4.8); Alkaline Phosphatase 48 U/L (40-150); Anion Gap 16 mmol/L (10-20); BUN (Urea Nitrogen) 26 mg/dL (9.8-20.1); Band 1 % (5-11); Bilirubin, Total 0.2 mg/dL (0.2-1.2); CK (CPK) 198 U/L (29-168); Calc. Creatinine Clearance 0 mL/min (70-130); Calcium 9.8 mg/dL (7.8-10.44); Carbon Dioxide 28 mmol/L (23-31); Chloride 99 mmol/L (98-107); Eosinophils 4 % (0-10); Estimated GFR-MDRD 65; Globulin 3.3 g/dL (2.4-3.5); Glucose 200 mg/dL (80-115); Hemoglobin 12.3 g/dL (12.0-16.0); Lymphocytes 33 % (21-51); MDiff Complete? YES; Mean Corpuscular HGB CONC 34.9 g/dL (32.0-36.0); Mean Corpuscular Hemoglobin 31.2 pg (27.0-31.0); Mean Corpuscular Volume 89.6 fl (81.0-99.0); Mean Platelet Volume 8.6 fL (7.4-10.4); Monocytes 12 % (0-10); Neutrophil 50 % (42-75); PLT Morphology Comment Appears Adequate; Platelet Count 190 thou/uL (130-400); Potassium 3.5 mmol/L (3.5-5.1); Protein, Total 7.1 g/dL (6.0-8.3); RBC Distribution Width 11.5 % (11.5-14.5); Red Blood Cell (RBC) Count 3.94 mill/uL (4.20-5.40); Sodium 139 mmol/L (136-145); White Blood Cell (WBC) Count 6.4 thou/uL (4.8-10.8)
[2018-03-02 04:36] LABS: CKMB 4.4 ng/mL (0-6.6); Troponin I 0.015 ng/mL (< 0.028)
[2018-03-02] MEDS ORDERED: Aspirin 325 MG TAB ONE (04:43)
[2018-03-02 07:14] VITALS: BMI 28.0
[2018-03-02] MEDS ORDERED: Acetaminophen/Codeine 30-300mg Tablet PO PRN (09:53)
[2018-03-02] MEDS ORDERED: Ondansetron ODT 4 MG TAB PO PRN (09:58)
[2018-03-02] MEDS ORDERED: Dextrose 50% Abboject 50 ML SYRINGE IVP PRN (10:00)
[2018-03-02] MEDS ORDERED: Spironolactone/Hctz 25 MG/25 MG TABLET PO SCH (10:00)
[2018-03-02] MEDS ORDERED: Dextrose 5% in Water 1,000 ML IV PRN (10:00)
[2018-03-02] MEDS ORDERED: Lisinopril 20 MG TAB PO SCH (10:00)
[2018-03-02] MEDS ORDERED: Clopidogrel Bisulfate 75 MG TAB PO SCH (10:00)
[2018-03-02] MEDS ORDERED: Spironolactone 25 MG TAB PO SCH (11:00)
[2018-03-02] MEDS ORDERED: Hydrochlorothiazide 25 MG TAB PO SCH (11:00)
--- NOTE | 2018-03-02 11:16 | CT ---
PRELIMINARY REPORT/[facility]/EMERGENTY AFTER-HOURS PROCEDURE CT Head Without Intravenous Contrast CLINICAL HISTORY: 62 years old, female; Signs and symptoms; Dizziness; Patient HX: Pt reports dizziness/blurred vision started tonight TECHNIQUE: Axial computed tomography images of the head/brain without intravenous contrast. COMPARISON: No relevant prior studies available. FINDINGS: Brain: Mild volume loss No hemorrhage. No significant white matter disease. No edema. Ventricles: Unremarkable. No ventriculomegaly. Bones/joints: Unremarkable. No acute fracture. Soft tissues: Unremarkable. Sinuses: Unremarkable as visualized. No acute sinusitis. Mastoid air cells: Unremarkable as visualized. No mastoid effusion. IMPRESSION: No intracranial hemorrhage. Please see discussion above. Thank you for allowing us to participate in the care of your patient. Dictated and Authenticated by: Layton Gastelum MD 03/02/2018 4:11 AM Central Time ([place] & [place]) FINAL REPORT HEAD CT WITHOUT CONTRAST: Date: 03/02/18 COMPARISON: 01/16/18. HISTORY: Dizziness and blurred vision. FINDINGS: I agree with the preliminary report given by Gigi. Imaged paranasal sinuses/mastoid air cells well ae rated. No displaced calvarial fracture. No intracranial hemorrhage, midline shift, mass effect, or ve ntricular enlargement. There is atherosclerotic calcification of the distal vertebral arteries and th e cavernous carotid arteries. IMPRESSION: No acute findings. POS: [facility]
[2018-03-02] MEDS: Acetaminophen 325 MG TAB PO PRN (11:26)
--- NOTE | 2018-03-02 15:05 | MRI ---
BRAIN MRI WITHOUT CONTRAST: Date: 03/02/18 COMPARISON: None. HISTORY: Blurred vision and dizziness. TECHNIQUE: Multiplanar, multisequence MR imaging of the brain obtained without contrast. FINDINGS: The diffusion-weighted imaging demonstrates no evidence for acute infarction. The axial gradient echo imaging demonstrates no evidence for intracranial hemorrhage. Numerous foci of increased T2 and FLAIR signal are seen within the periventricular deep and subcortic al white matter, evidence of small vessel disease. Arterial flow-voids at the axial level of the skull base appear grossly unremarkable on the T2-weight ed imaging. Regional bone marrow signal intensity appears grossly unremarkable. IMPRESSION: Small vessel disease with no evidence for intracranial hemorrhage or acute infarction. POS: [facility]
[2018-03-02] MEDS: HumaLOG 300 UNITS/3 ML VIAL SC PRN ×2 (18:45→21:45)
[2018-03-02] MEDS ORDERED: Insulin Detemir 100 UNITS/ML 50 UNITS in Pre-Filled Syringe 1 EACH SC SCH (21:00)
[2018-03-02] MEDS ORDERED: Rosuvastatin 20 MG TAB PO SCH (21:00)
--- NOTE | 2018-03-02 22:37 | HP ---
DATE OF ADMISSION: 03/02/2018 CHIEF COMPLAINT: Difficulty walking, right-sided weakness and blurry vision. HISTORY OF PRESENT ILLNESS: Ms. Berg is a 62-year-old -Fijian female with past medical h istory of hypertension, diabetes mellitus, CVA, who woke up this morning with weakness and difficulty walking, feels blurry and was feeling dizzy as well, felt more weaker than usual on the right side. She felt as she was staggering. No loss of consciousness. No history of fall. No chest pain. No shortness of breath. The patient came to the emergency room where she was evaluated and found to hav e no focal neurological deficit. CT scan was unremarkable. The patient is being admitted to rule ou t mass, rule out CVA. PAST MEDICAL HISTORY: 1. Insulin-dependent diabetes mellitus. 2. Hypertension. 3. Hyperlipidemia. 4. History of cerebrovascular accident. 5. History of migraine headaches, hyperlipidemia. PAST SURGICAL HISTORY: 1. Status post appendectomy. 2. Status post hysterectomy. 3. Status post thoracotomy. 4. Status post tonsillectomy. CURRENT MEDICATIONS: Patient is on Plavix 75 mg daily, Farxiga 5 mg daily, Lantus insulin 50 units d aily, lisinopril 20 mg daily, Zofran p.r.n., Crestor 40 mg daily, spironolactone 25 mg daily, hydroch lorothiazide 25 mg daily, Flonase nasal spray daily and Humalog insulin before each meal 3 times a da y 15 units. ALLERGIES: SULFA. FAMILY HISTORY: Nothing of interest. SOCIAL HISTORY: Patient lives with family. No history of smoking. REVIEW OF SYSTEMS: Unremarkable except for the weakness and unstable gait. PHYSICAL EXAMINATION: GENERAL: The patient is alert, awake, oriented x3. VITAL SIGNS: Temperature 98, pulse 80, respirations 20, blood pressure 140/80. HEENT: Head is normal, atraumatic. Pupils equal and reactive to light. Nasopharynx is pink and kyra st. NECK: Supple. No JVD. LUNGS: Bilateral air entry present, no rales, no rhonchi noticed. HEART: S1, S2 regular. ABDOMEN: Soft, no distention, no tenderness. Normal bowel sounds. RECTAL: Deferred. NEUROLOGIC: No focal deficit. EXTREMITIES: A 1+ pitting edema. LABORATORY DATA: CBC shows WBC 6, hemoglobin 12, hematocrit 35, platelets 190. Metabolic panel show s sodium 139, potassium 3.5, chloride 99, CO2 18, urea nitrogen 6, creatinine 1, glucose 200. EKG, n ormal sinus rhythm, no acute ST-T wave changes seen. CT scan of the brain, no evidence of acute infa rct or hemorrhage. ASSESSMENT: 1. Weakness right-sided with unstable gait and blurry vision, rule out cerebrovascular accident. 2. Diabetes mellitus. 3. Hypertension. 4. History of cerebrovascular accident. 5. Migraine headaches. PLAN: 1. Vital signs q.4 hours. 2. Activity: As tolerated. 3. Allergies: SULFA. 4. Diet: ADA. 5. Continue home medications. 6. MRI of the brain. 7. Accu-Chek a.c. and at bedtime. 8. Sliding scale mild with regular insulin.
[2018-03-03] MEDS: Acetaminophen 325 MG TAB PO PRN (04:31)
[2018-03-03] MEDS ORDERED: Spironolactone 25 MG TAB PO SCH ×2 (08:00→12:00)
[2018-03-03] MEDS ORDERED: FARXIGA PO SCH ×2 (09:00)
[2018-03-03] MEDS ORDERED: Lisinopril 20 MG TAB PO SCH (09:00)
[2018-03-03] MEDS ORDERED: Fluticasone Propionate Nasal Spray 16 gm Bottle NASAL SCH (09:00)
[2018-03-03] MEDS ORDERED: Clopidogrel Bisulfate 75 MG TAB PO SCH (09:00)
[2018-03-03] MEDS ORDERED: Hydrochlorothiazide 25 MG TAB PO SCH ×2 (09:00→12:00)
[2018-03-03] MEDS ORDERED: Spironolactone/Hctz 25 MG/25 MG TABLET PO SCH (09:00)
[2018-03-03 11:41] VITALS: BP 112/82; TEMP 98.5
[2018-03-04] MEDS ORDERED: Spironolactone 25 MG TAB PO SCH (08:00)
[2018-03-04] MEDS ORDERED: Hydrochlorothiazide 25 MG TAB PO SCH (08:00)
--- NOTE | 2018-03-04 14:47 | DIS ---
DATE OF ADMISSION: 03/02/2018 DATE OF DISCHARGE: 03/03/2018 ADMITTING DIAGNOSES: 1. Weakness, right-sided, with unstable gait and blurry vision, rule out cerebrovascular accident. 2. Hypertension. 3. History of cerebrovascular accident. 4. Migraine headaches. FINAL DIAGNOSES: 1. Weakness, right-sided, with unsteady gait, improved. No evidence of cerebrovascular accident. 2. Diabetes mellitus. 3. Hypertension. 4. History of cerebrovascular accident. 5. Migraine headaches. BRIEF SUMMARY OF HOSPITAL COURSE: Ms. Berg is a 62-year-old -Micronesian female who admitted because of weakness of right-sided. She felt she was more weak and feels dizzy and weak as well as s ome blurry vision. She was admitted to rule out CVA in view of her previous CVA. She did not have a ny chest pain or shortness of breath. CT scan was unremarkable. The patient was admitted and starte d on physical therapy as well as an MRI was ordered. MRA showed no evidence of any acute infarct or any acute hemorrhage. The patient is able to ambulate to the bathroom with her walker. She did not have any specific weakness. She did not have any blurry vision or headache. In view of improvement, the patient was discharged. At the time of discharge, she was stable. Her vital signs were stable. Lungs were clear. Heart sounds regular. Abdomen is soft and nontender and normal bowel sounds. DISCHARGE MEDICATIONS: Lantus insulin 50 units daily, lisinopril 20 mg daily, Plavix 75 mg daily, Ty lenol with codeine p.r.n., spironolactone with hydrochlorothiazide 25/25 daily, Crestor 40 mg daily, Farxiga 5 mg daily, Flonase nasal spray daily, Zofran p.r.n. The patient to continue with ADA diet and come for followup in 2 weeks.
== END 2018-03-03 13:14 | disposition home or self-care (01) ==
LOC: ERS 02:50 → 2SE 05:57 → INTOOBSV 05:57
PROVIDERS: ADMIT Internal Medicine; ATTEND Internal Medicine
DX: R29.898 Other symptoms and signs involving the musculoskeletal system (principal); R26.81 Unsteadiness on feet; H53.8 Other visual disturbances; E11.9 Type 2 diabetes mellitus without complications; I10 Essential (primary) hypertension; G43.909 Migraine, unspecified, not intractable, without status migrainosus; E78.5 Hyperlipidemia, unspecified; Z79.02 Long term (current) use of antithrombotics/antiplatelets; Z79.4 Long term (current) use of insulin; Z79.51 Long term (current) use of inhaled steroids; Z79.899 Other long term (current) drug therapy; Z88.2 Allergy status to sulfonamides; Z90.89 Acquired absence of other organs; Z90.49 Acquired absence of other specified parts of digestive tract; Z90.710 Acquired absence of both cervix and uterus; Z98.890 Other specified postprocedural states; Z86.73 Personal history of transient ischemic attack (TIA), and cerebral infarction without residual deficits
CPT/HCPCS: 70450; 70551; 80053; 82550; 82553; 82962 ×2; 84484; 85025; 93005; 97139; 99285; G0378; 36415; 36416; J1815

== ENCOUNTER 2018-03-08 13:01 | Emergency (ER) | payer MEDICARE ==
[2018-03-08 13:59] LABS: Bilirubin Negative (Negative); Blood, Urine Negative (Negative); Clarity CLEAR (Clear); Glucose, Urine (Dipstick) >=1000 mg/dL (Negative); Leukocyte Negative (Negative); Nitrite Negative (Negative); Protein, Urine (Dipstick) Negative (Neg-Trace); Specific Gravity, Urine 1.024 (1.002-1.036); Urobilinogen 0.2 mg/dL (0.2-1.0)
[2018-03-08 14:21] LABS: #Basophils 0.1 thou/uL (0.0-0.2); #Eosinphils 0.2 thou/uL (0.0-0.7); #Lymphocytes 2.1 thou/uL (1.20-3.40); #Monocytes 0.5 thou/uL (0.11-0.59); #Neutrophils 2.6 thou/uL (1.40-6.50); %Eosinophils 3.9 % (0.0-10.0); %Lymphocytes 38.8 % (21.0-51.0); %Monocytes 9.3 % (0.0-10.0); Mean Corpuscular HGB CONC 36.9 g/dL (32.0-36.0); Mean Corpuscular Hemoglobin 32.6 pg (27.0-31.0); Mean Corpuscular Volume 88.2 fl (81.0-99.0); Mean Platelet Volume 8.7 fL (7.4-10.4); Platelet Count 188 thou/uL (130-400); RBC Distribution Width 11.3 % (11.5-14.5); Red Blood Cell (RBC) Count 3.69 mill/uL (4.20-5.40); White Blood Cell (WBC) Count 5.5 thou/uL (4.8-10.8)
[2018-03-08 14:44] LABS: ALT (SGPT) 10 U/L (8-55); AST (SGOT) 15 U/L (5-34); Albumin 3.8 g/dL (3.4-4.8); Alkaline Phosphatase 47 U/L (40-150); Anion Gap 14 mmol/L (10-20); BUN (Urea Nitrogen) 26 mg/dL (9.8-20.1); Bilirubin, Total 0.3 mg/dL (0.2-1.2); Calc. Creatinine Clearance 0 mL/min (70-130); Calcium 9.8 mg/dL (7.8-10.44); Carbon Dioxide 25 mmol/L (23-31); Chloride 102 mmol/L (98-107); Estimated GFR-MDRD 69; Globulin 3.1 g/dL (2.4-3.5); Glucose 358 mg/dL (80-115); Potassium 3.6 mmol/L (3.5-5.1); Protein, Total 6.9 g/dL (6.0-8.3); Sodium 137 mmol/L (136-145)
--- NOTE | 2018-03-08 16:26 | RAD ---
LEFT FOOT RADIOGRAPHS THREE VIEWS: 03/08/18 PROVIDED CLINICAL HISTORY: Foot wound. FINDINGS: Comparison 09/22/17. There is no evidence for fracture or other acute osseous abnormality. If there is persistent clinical concern, conservative management and followup imaging are advised. IMPRESSION: As above. POS: [facility]
== END 2018-03-08 16:40 | disposition home or self-care (01) ==
LOC: ERS 13:01
DX: E10.621 Type 1 diabetes mellitus with foot ulcer (principal); L97.529 Non-pressure chronic ulcer of other part of left foot with unspecified severity; I10 Essential (primary) hypertension; F41.9 Anxiety disorder, unspecified; Z79.82 Long term (current) use of aspirin; Z86.73 Personal history of transient ischemic attack (TIA), and cerebral infarction without residual deficits; Z79.899 Other long term (current) drug therapy
CPT/HCPCS: 36415; 80053; 81003; 85025; 85652; 86140

== ENCOUNTER 2018-03-24 11:13 | Observation (INO) | payer MEDICARE ==
[2018-03-24 11:40] LABS: #Basophils 0.1 thou/uL (0.0-0.2); #Eosinphils 0.3 thou/uL (0.0-0.7); #Lymphocytes 2.6 thou/uL (1.20-3.40); #Monocytes 0.7 thou/uL (0.11-0.59); #Neutrophils 2.4 thou/uL (1.40-6.50); %Eosinophils 5.6 % (0.0-10.0); %Lymphocytes 41.7 % (21.0-51.0); %Monocytes 11.7 % (0.0-10.0); %Neutrophils 38.9 % (42.0-75.0); Hemoglobin 12.8 g/dL (12.0-16.0); Mean Corpuscular HGB CONC 34.5 g/dL (32.0-36.0); Mean Corpuscular Hemoglobin 31.4 pg (27.0-31.0); Mean Corpuscular Volume 90.9 fl (81.0-99.0); Mean Platelet Volume 8.3 fL (7.4-10.4); Platelet Count 184 thou/uL (130-400); RBC Distribution Width 11.8 % (11.5-14.5); White Blood Cell (WBC) Count 6.1 thou/uL (4.8-10.8)
[2018-03-24 11:49] LABS: INR-International Normal Ratio 0.9; Prothrombin Time 12.6 SEC (12.0-14.7)
[2018-03-24 11:55] LABS: ALT (SGPT) 12 U/L (8-55); AST (SGOT) 17 U/L (5-34); Albumin 3.8 g/dL (3.4-4.8); Alkaline Phosphatase 36 U/L (40-150); Anion Gap 9 mmol/L (10-20); BUN (Urea Nitrogen) 20 mg/dL (9.8-20.1); Bilirubin, Total 0.3 mg/dL (0.2-1.2); CK (CPK) 211 U/L (29-168); Calc. Creatinine Clearance 0 mL/min (70-130); Calcium 9.9 mg/dL (7.8-10.44); Carbon Dioxide 34 mmol/L (23-31); Chloride 104 mmol/L (98-107); Estimated GFR-MDRD Greater than 90; Globulin 3.2 g/dL (2.4-3.5); Glucose 75 mg/dL (80-115); Potassium 3.5 mmol/L (3.5-5.1); Sodium 143 mmol/L (136-145)
[2018-03-24 12:40] LABS: CKMB 5.2 ng/mL (0-6.6); Troponin I 0.023 ng/mL (< 0.028)
[2018-03-24] MEDS ORDERED: ISOVUE-370 76%-LOCM 1 ML ONE (12:59)
[2018-03-24] MEDS ORDERED: Aspirin 325 MG TAB ONE (13:12)
--- NOTE | 2018-03-24 13:26 | CT ---
CTA OF THE HEAD WITH AND WITHOUT IV CONTRAST UTILIZING 3D REFORMATTED IMAGING: Date: 03/24/18 INDICATION: Concern for possible migraine, CVA, dizziness, ataxia, and visual change. Patient has blurred vision and unsteady gait. COMPARISON: MRI of the brain dated 03/02/18. FINDINGS: There is mild chronic small vessel white matter ischemic change. Septum pellucidum and third ventricl e are midline. No acute infarct, hemorrhage, or hydrocephalus present. There are some vascular calcif ications surrounding the proximal aspect of the intracranial vertebral arteries bilaterally with mild luminal stenosis. Basilar, MCA, KATHARINE, and MANAGER LATIN appear widely patent. No abnormal enhancement is demons trated. Skull and extracranial soft tissues are unremarkable. IMPRESSION: 1. No hemodynamically significant stenosis, occlusion, or aneurysm formation. 2. Mild luminal caliber narrowing involving the proximal intracranial vertebral arteries bilaterally due to some calcified atherosclerotic plaque. 3. No definite acute infarct, hemorrhage, or hydrocephalus present. POS: [facility]
[2018-03-24 18:40] VITALS: BMI 32.2
[2018-03-24] MEDS ORDERED: Dextrose 50% Abboject 50 ML SYRINGE IVP PRN (19:28)
[2018-03-24] MEDS ORDERED: Dextrose 5% in Water 1,000 ML IV PRN (19:28)
[2018-03-24] MEDS ORDERED: Potassium Chloride 20 MEQ TAB PO SCH (19:30)
[2018-03-24] MEDS: Insulin Regular 300 UNITS/3 ML VIAL SC PRN (21:34)
[2018-03-25] MEDS ORDERED: Acetaminophen/Codeine 30-300mg Tablet PO PRN (01:36)
[2018-03-25] MEDS ORDERED: Acetaminophen 325 MG TAB PO PRN (01:36)
[2018-03-25] MEDS ORDERED: Fluticasone Propionate Nasal Spray 16 gm Bottle NASAL PRN (01:39)
[2018-03-25] MEDS ORDERED: Dextrose 50% Abboject 50 ML SYRINGE IVP PRN (01:41)
[2018-03-25] MEDS ORDERED: Dextrose 5% in Water 1,000 ML IV PRN (01:41)
[2018-03-25] MEDS ORDERED: HumaLOG 300 UNITS/3 ML VIAL SC PRN (01:41)
[2018-03-25] MEDS ORDERED: Ondansetron ODT 4 MG TAB PO PRN (01:50)
--- NOTE | 2018-03-25 01:55 | HP ---
DATE OF ADMISSION: 03/24/2018 CHIEF COMPLAINT: Migraine headaches and staggering gait. HISTORY OF PRESENT ILLNESS: Ms. Berg is a 62-year-old, -[place]vad[place] female with past medical history of hypertension, diabetes mellitus, status post CVA, has been having migraine headaches and b lurry vision and difficulty walking. The patient states she was staggering, unable to ambulate, it w as spinning around. The headache started this morning with some nausea as well as blurry vision. Sh e states she slept okay for some time last night and then she woke up this morning with headache. He adache was not relieved by her pain medications with unsteady gait, migraine headache, and vision izabela nges. The patient decided to come to the hospital. In the ER, the patient was evaluated. CT scan w as unremarkable. CT angio of the [place], no hemodynamically significant stenosis, occlusio n, or aneurysm formation. Mild luminal caliber narrowing involving proximal intracranial vertebral a rteries bilaterally, but ER physician felt the patient may have CVA because of her ataxia, so she is being admitted for further evaluation and management. PAST MEDICAL HISTORY: 1. Hypertension. 2. Insulin-dependent diabetes mellitus. 3. Hyperlipidemia. 4. Status post cerebrovascular accident. 5. History of migraine headaches. PAST SURGICAL HISTORY: 1. Status post appendectomy. 2. Status post hysterectomy. 3. Status post thoracotomy. 4. Status post tonsillectomy. CURRENT MEDICATIONS: The patient is on Lasix 40 mg daily, lisinopril 20 mg daily, Forxiga 5 mg daily , spironolactone/hydrochlorothiazide 20/25 daily, Plavix 75 mg daily, Crestor 40 mg daily, hydroxyzin e p.r.n., aspirin, and also takes insulin, she takes Humalog insulin 15 units three times a day and a lso on Lantus insulin 50 units daily. ALLERGIES: SULFA. FAMILY HISTORY: Nothing contributory. SOCIAL HISTORY: Patient lives with family. No history of smoking. No history of alcohol. REVIEW OF SYSTEMS: Unremarkable except for the unstable gait and headache and dizziness. No chest p ain. No shortness of breath. PHYSICAL EXAMINATION: GENERAL: The patient is alert, awake, oriented x3. VITAL SIGNS: Temperature 98, respirations 20, blood pressure 120/70. HEENT: Head is normocephalic, atraumatic. Pupils are equal and reactive to light. Nasopharynx is p ink and moist. NECK: Supple. No JVD. LUNGS: Bilateral air entry present. No rales, no rhonchi. HEART: S1, S2 regular. ABDOMEN: Soft, no distention, no tenderness. Normal bowel sounds. RECTAL: Deferred. CENTRAL NERVOUS SYSTEM: The patient is alert, awake, oriented x3. Motor system power 4/5 in all ext remities. Deep tendon reflexes 2+ bilaterally. Plantar is downgoing. Sensory intact. LABORATORY AND X-RAY FINDINGS: CBC shows WBC 6, hemoglobin 12, hematocrit 37, platelets 184,000. Me tabolic panel: Sodium 143, potassium 3.5, chloride 104, CO2 of 34, BUN 20, creatinine 0.7, glucose 7 5. CK-MB 5.2, troponin 0.023. Prothrombin time 12, INR 0.9. CT of the [place], no hemodyn amically significant stenosis or occlusion, or aneurysm formation. EKG shows normal sinus rhythm, no acute ST-T changes seen. ASSESSMENT: 1. Ataxia and dizziness, rule out cerebrovascular accident. 2. Headache, migraine with vision changes. 3. Hypertension. 4. Insulin-dependent diabetes mellitus. 5. History of cerebrovascular accident. 6. Hyperlipidemia. PLAN: 1. Vital signs q.4 hours. 2. Activity as tolerated. 3. Allergies: SULFA. 4. Continue home medication. 5. Accu-Cheks a.c. and at bedtime. 6. Sliding scale mild with regular insulin. 7. We will obtain neurology consult. 8. MRI of the brain. 9. Carotid Doppler study. Patient will possibly be discharged in a day or two.
[2018-03-25] MEDS ORDERED: Hydrochlorothiazide 25 MG TAB PO SCH (08:00)
[2018-03-25] MEDS ORDERED: Spironolactone 25 MG TAB PO SCH (08:00)
[2018-03-25] MEDS ORDERED: DAPAGLIFLOZIN 5 MG PO SCH (09:00)
[2018-03-25] MEDS ORDERED: Lisinopril 20 MG TAB PO SCH (09:00)
[2018-03-25] MEDS ORDERED: Clopidogrel Bisulfate 75 MG TAB PO SCH (09:00)
--- NOTE | 2018-03-25 10:12 | ULT ---
CAROTID DUPLEX SONOGRAM: History: CVA. Vascular disease. FINDINGS: Right: Mild plaque. Color and spectral doppler evaluation, peak systolic velocity of 54 cm/sec and IC /CC ratio of 0.8 suggests no hemodynamically significant stenosis within the extracranial right ICA. Antegrade flow is present within the vertebral artery. Left: Mild plaque. Color and spectral doppler evaluation, peak systolic velocity of 59 cm/sec and IC/ CC ratio of 0.7 cm suggests no hemodynamically significant stenosis within the extracranial left ICA. Antegrade flow is present within the vertebral artery. IMPRESSION: Atherosclerosis. No sonographic evidence of significant extracranial ICA stenosis. POS: [facility]
[2018-03-25] MEDS: Insulin Regular 300 UNITS/3 ML VIAL SC PRN (11:14)
--- NOTE | 2018-03-25 11:37 | MRI ---
BRAIN MRI WITH AND WITHOUT CONTRAST: Date: 03/25/18 COMPARISON: 03/02/18. 11/21/15. HISTORY: CVA. TECHNIQUE: Brain MRI is performed with and without intravenous Gadolinium administration. Multisequential, multi planar imaging is performed. FINDINGS: No hemorrhage on the axial gradient echo sequence. No parenchymal mass, mass effect, or midline shift . Brain volume is age-appropriate. Cortical roberson-white matter differentiation is preserved. Ventricle s and sulci are patent and symmetric. Central arterial flow-voids are maintained. Absent restricted d iffusion. Calvarium has appropriate T1 marrow signal intensity. Midline brain parenchymal structures are unremarkable. Stable T2 and FLAIR white matter hyperintensities due to chronic small vessel ische james changes. No abnormal enhancement of the brain parenchyma. IMPRESSION: 1. Absent restricted diffusion. No acute infarct. 2. Chronic small vessel ischemic changes of white matter. 3. No significant interval change. POS: [facility]
[2018-03-25 12:21] VITALS: BP 131/74; TEMP 97
[2018-03-25] MEDS ORDERED: LANTUS SLIDING SCALE SC SCH (21:00)
[2018-03-25] MEDS ORDERED: Rosuvastatin 20 MG TAB PO SCH (21:00)
--- NOTE | 2018-03-29 17:54 | EKG ---
Test Reason : Blood Pressure : / mmHG Vent. Rate : 069 BPM Atrial Rate : 069 BPM P-R Int : 136 ms QRS Dur : 062 ms QT Int : 380 ms P-R-T Axes : 048 -16 -03 degrees QTc Int : 407 ms Normal sinus rhythm Septal infarct , age undetermined Inferior infarct , age undetermined Abnormal ECG Left ventricular hypertrophy Confirmed by TERESA HONG, IAM Zambrano ([id number]), book or script editor MARCIA GOSS ([id number]) on 03/29/2018 5:54:08 PM Referred By: Confirmed By:IAM MOORE MD
== END 2018-03-25 16:08 | disposition home or self-care (01) ==
LOC: ERS 11:13 → 2SE 13:09
PROVIDERS: ADMIT Internal Medicine; ATTEND Internal Medicine
DX: R27.0 Ataxia, unspecified (principal); G43.909 Migraine, unspecified, not intractable, without status migrainosus; I10 Essential (primary) hypertension; E11.9 Type 2 diabetes mellitus without complications; E78.5 Hyperlipidemia, unspecified; Z86.73 Personal history of transient ischemic attack (TIA), and cerebral infarction without residual deficits; Z79.02 Long term (current) use of antithrombotics/antiplatelets; Z88.2 Allergy status to sulfonamides; Z79.82 Long term (current) use of aspirin; Z79.4 Long term (current) use of insulin; Z79.899 Other long term (current) drug therapy
CPT/HCPCS: 70496; 70553; 80053; 82550; 82553; 82962 ×2; 84484; 85025; 85610; 85730; 93005; 93306; 93880; 99285; G0378; 36415; 36416; J1815

== ENCOUNTER 2018-05-09 06:16 | Emergency (ER) | payer MEDICARE ==
[2018-05-09] MEDS ORDERED: Acetaminophen 500 MG TAB ONE (06:55)
== END 2018-05-09 10:20 | disposition home or self-care (01) ==
LOC: ERS 06:16
DX: G89.29 Other chronic pain (principal); M25.569 Pain in unspecified knee; E10.9 Type 1 diabetes mellitus without complications; E78.5 Hyperlipidemia, unspecified; I10 Essential (primary) hypertension; G43.909 Migraine, unspecified, not intractable, without status migrainosus; F41.9 Anxiety disorder, unspecified; Z79.82 Long term (current) use of aspirin; Z79.899 Other long term (current) drug therapy; Z86.73 Personal history of transient ischemic attack (TIA), and cerebral infarction without residual deficits
CPT/HCPCS: 99284

== ENCOUNTER 2018-05-09 13:10 | Emergency (ER) | payer MEDICARE | END 2018-05-09 15:27 | disposition home or self-care (01) | LOC: ERS 13:10 | DX: Z53.21 Procedure and treatment not carried out due to patient leaving prior to being seen by health care provider (principal) ==

== ENCOUNTER 2018-05-19 17:56 | Emergency (ER) | payer MEDICARE ==
[2018-05-19] MEDS ORDERED: Nitroglycerin 2% Ointment 1 INCH/1 GM Packet ONE (18:29)
[2018-05-19 18:32] LABS: #Basophils 0.1 thou/uL (0.0-0.2); #Eosinphils 0.2 thou/uL (0.0-0.7); #Lymphocytes 2.2 thou/uL (1.20-3.40); #Monocytes 0.6 thou/uL (0.11-0.59); #Neutrophils 2.9 thou/uL (1.40-6.50); %Basophils 1.4 % (0.0-1.0); %Eosinophils 3.6 % (0.0-10.0); %Lymphocytes 36.6 % (21.0-51.0); %Monocytes 9.7 % (0.0-10.0); %Neutrophils 48.6 % (42.0-75.0); Hemoglobin 12.4 g/dL (12.0-16.0); Mean Corpuscular HGB CONC 34.6 g/dL (32.0-36.0); Mean Corpuscular Hemoglobin 31.2 pg (27.0-31.0); Mean Corpuscular Volume 90.1 fL (78.0-98.0); Mean Platelet Volume 8.5 fL (7.4-10.4); Platelet Count 172 thou/uL (130-400); RBC Distribution Width 12.5 % (11.5-14.5); Red Blood Cell (RBC) Count 3.97 mill/uL (4.20-5.40); White Blood Cell (WBC) Count 5.9 thou/uL (4.8-10.8)
[2018-05-19 18:53] LABS: ALT (SGPT) 12 U/L (8-55); AST (SGOT) 13 U/L (5-34); Albumin 3.8 g/dL (3.4-4.8); Alkaline Phosphatase 40 U/L (40-150); Anion Gap 13 mmol/L (10-20); BUN (Urea Nitrogen) 19 mg/dL (9.8-20.1); Bilirubin, Total 0.4 mg/dL (0.2-1.2); CK (CPK) 111 U/L (29-168); Calc. Creatinine Clearance 0 mL/min (70-130); Calcium 9.9 mg/dL (7.8-10.44); Carbon Dioxide 27 mmol/L (23-31); Chloride 100 mmol/L (98-107); Estimated GFR-MDRD 74; Globulin 3.2 g/dL (2.4-3.5); Glucose 347 mg/dL (80-115); Lipase 12 U/L (8-78); Potassium 3.9 mmol/L (3.5-5.1); Sodium 136 mmol/L (136-145)
[2018-05-19 18:56] LABS: CKMB 3.1 ng/mL (0-6.6); Troponin I Less than 0.010 ng/mL (< 0.028)
--- NOTE | 2018-05-19 19:02 | RAD ---
PORTABLE FRONTAL CHEST RADIOGRAPH: Date: 05-19-18 Comparison: 02-17-18 History: Chest pain. FINDINGS: No pneumothorax, pleural fluid, focal consolidation, or alveolar edema. Heart and mediastinal contour s are unremarkable. IMPRESSION: No acute findings. POS: [facility]
[2018-05-19] MEDS ORDERED: Acetaminophen 500 MG TAB ONE (19:51)
[2018-05-19 20:39] LABS: Troponin I Less than 0.010 ng/mL (< 0.028)
== END 2018-05-19 21:22 | disposition home or self-care (01) ==
LOC: ERS 17:56
DX: R07.9 Chest pain, unspecified (principal); E10.9 Type 1 diabetes mellitus without complications; E78.5 Hyperlipidemia, unspecified; I10 Essential (primary) hypertension; G43.909 Migraine, unspecified, not intractable, without status migrainosus; F41.9 Anxiety disorder, unspecified
CPT/HCPCS: 36415; 71045; 80053; 82550; 82553; 83690; 84484; 85025; 93005

== ENCOUNTER 2018-06-08 03:33 | Emergency (ER) | payer MEDICARE ==
[2018-06-08 04:22] LABS: #Basophils 0.1 thou/uL (0.0-0.2); #Eosinphils 0.2 thou/uL (0.0-0.7); #Lymphocytes 1.8 thou/uL (1.20-3.40); #Monocytes 0.6 thou/uL (0.11-0.59); #Neutrophils 3.4 thou/uL (1.40-6.50); %Basophils 1.5 % (0.0-1.0); %Eosinophils 3.2 % (0.0-10.0); %Lymphocytes 29.6 % (21.0-51.0); %Monocytes 10.3 % (0.0-10.0); %Neutrophils 55.4 % (42.0-75.0); Hemoglobin 12.5 g/dL (12.0-16.0); Mean Corpuscular HGB CONC 35.8 g/dL (32.0-36.0); Mean Corpuscular Hemoglobin 31.1 pg (27.0-31.0); Mean Platelet Volume 8.8 fL (7.4-10.4); Platelet Count 171 thou/uL (130-400); RBC Distribution Width 11.7 % (11.5-14.5); Red Blood Cell (RBC) Count 4.02 mill/uL (4.20-5.40); White Blood Cell (WBC) Count 6.2 thou/uL (4.8-10.8)
[2018-06-08 04:32] LABS: ALT (SGPT) 11 U/L (8-55); AST (SGOT) 15 U/L (5-34); Albumin 3.9 g/dL (3.4-4.8); Alkaline Phosphatase 47 U/L (40-150); Anion Gap 14 mmol/L (10-20); BUN (Urea Nitrogen) 17 mg/dL (9.8-20.1); Bilirubin, Total 0.4 mg/dL (0.2-1.2); Calc. Creatinine Clearance 0 mL/min (70-130); Calcium 9.8 mg/dL (7.8-10.44); Carbon Dioxide 27 mmol/L (23-31); Chloride 97 mmol/L (98-107); Estimated GFR-MDRD 73; Globulin 3.4 g/dL (2.4-3.5); Glucose 411 mg/dL (80-115); Potassium 3.6 mmol/L (3.5-5.1); Protein, Total 7.3 g/dL (6.0-8.3); Sodium 134 mmol/L (136-145)
[2018-06-08] MEDS ORDERED: Insulin Regular 300 UNITS/3 ML VIAL ONE (04:49)
[2018-06-08] MEDS ORDERED: HYDROcodone/Acetaminophen 10/325 mg Tablet ONE (04:56)
--- NOTE | 2018-06-08 09:31 | RAD ---
PELVIS 1 VIEW: HISTORY: A 62-year-old female with a history with injury from a fall. FINDINGS: Bilateral hip joint degenerative and osteoarthrosis changes. No acute pelvic fracture. IMPRESSION: Degenerative changes of both hips without acute fracture of the pelvis. POS: [facility]
--- NOTE | 2018-06-08 10:06 | CT ---
PRELIMINARY REPORT/[facility]/EMERGENTY AFTER-HOURS PROCEDURE CT Abdomen and Pelvis Without Intravenous Contrast CLINICAL HISTORY: The patient is a 62 years female; Injury or trauma; Fall; Initial encounter; Abrasion; Patient HX: Er 6; F62 presents to ed with C/O fall one week ago. Pt reports that she hurt her left hip. Pt reports that she is able to walk on the hip, but she needs to use a cane. She notes that she doesn't always h ave to use the cane, but right now she is for the pain. TECHNIQUE: Axial computed tomography images of the abdomen and pelvis without intravenous contrast. Coronal and sagittal reformatted images were created and reviewed. COMPARISON: No relevant prior studies available. FINDINGS: Lung bases: Unremarkable ABDOMEN: Liver: Unremarkable. Gallbladder and bile ducts: Gallbladder not visualized. Pancreas: Unremarkable. No ductal dilation. Spleen: Unremarkable. No splenomegaly. Adrenals: Unremarkable. No mass. Kidneys and ureters: Unremarkable. No obstructing stones. No hydronephrosis. Stomach and bowel: Unremarkable. No obstruction. No mucosal thickening. PELVIS: Appendix: No findings to suggest acute appendicitis. Bladder: Full. No stones. Reproductive: Unremarkable as visualized. ABDOMEN and PELVIS: Intraperitoneal space: No free fluid or fluid collection. No free air. Bones/joints: No evidence of fracture or dislocation. Degenerative changes of the lower lumbar spine. Soft tissues: Unremarkable. Vasculature: Scattered vascular calcifications. No abdominal aortic aneurysm. Lymph nodes: Unremarkable. No enlarged lymph nodes. IMPRESSION: 1. No evidence of fracture or other acute abnormality on noncontrast CT. Thank you for allowing us to participate in the care of your patient. Dictated and Authenticated by: Darrick Pruitt MD 06/08/2018 7:18 AM Central Time ([place] & [place]) FINAL REPORT EMERGENT AFTER HOURS NONCONTRAST CT ABDOMEN AND PELVIS EMERGENT AFTER HOURS CT LUMBAR SPINE: DATE: 06/08/18. HISTORY: Injury after a fall. Injured left hip. COMPARISON: Noncontrast CT abdomen and pelvis on 11/02/17. IMPRESSION: 1. Lack of intravenous contrast limits sensitivity for evaluation of the parenchymal organs. 2. Bibasilar atelectasis. 3. No acute findings are seen on this nonenhanced CT scan of the abdomen and pelvis. 4. Atherosclerotic vascular calcifications in the abdominal aorta and iliac arteries. 5. No renal or ureteral calculi are seen bilaterally. 6. Multilevel degenerative changes throughout the lumbar spine with narrowing of the intervertebral disk spaces and vacuum phenomenon seen at multiple levels. Disk-osteophyte complexes are also seen w ithin the lower lumbar spine. No fracture or subluxation is seen involving the lumbar spine. 7. Findings are in agreement with the preliminary report by [facility]. POS: [facility]
== END 2018-06-08 07:55 | disposition home or self-care (01) ==
LOC: ERS 03:33
DX: S70.02XA Contusion of left hip, initial encounter (principal); E10.9 Type 1 diabetes mellitus without complications; E78.5 Hyperlipidemia, unspecified; I10 Essential (primary) hypertension; Z86.73 Personal history of transient ischemic attack (TIA), and cerebral infarction without residual deficits; F41.9 Anxiety disorder, unspecified; Z79.899 Other long term (current) drug therapy; Z79.82 Long term (current) use of aspirin; W19.XXXA Unspecified fall, initial encounter
CPT/HCPCS: 36415; 72170; 74176; 80053; 83880; 84443; 85025; J1815

== ENCOUNTER 2018-07-22 15:53 | Emergency (ER) | payer MEDICARE ==
[2018-07-22 16:45] LABS: #Basophils 0.1 thou/uL (0.0-0.2); #Eosinphils 0.2 thou/uL (0.0-0.7); #Lymphocytes 1.9 thou/uL (1.20-3.40); #Monocytes 0.8 thou/uL (0.11-0.59); #Neutrophils 3.8 thou/uL (1.40-6.50); %Basophils 1.3 % (0.0-1.0); %Eosinophils 3.5 % (0.0-10.0); %Monocytes 11.3 % (0.0-10.0); %Neutrophils 55.9 % (42.0-75.0); Mean Corpuscular Hemoglobin 31.2 pg (27.0-31.0); Mean Corpuscular Volume 89.3 fL (78.0-98.0); Mean Platelet Volume 8.4 fL (7.4-10.4); Platelet Count 236 thou/uL (130-400); Red Blood Cell (RBC) Count 4.17 mill/uL (4.20-5.40); White Blood Cell (WBC) Count 6.9 thou/uL (4.8-10.8)
--- NOTE | 2018-07-22 16:52 | CT ---
CT HEAD NONCONTRAST: 07/22/18 HISTORY: Altered mental status. COMPARISON: 03/02/18. FINDINGS: There is no evidence of acute intracranial hemorrhage or infarct. Mild chronic ischemic small vessel disease is stable. No mass effect or shift of midline structures. The visualized paranasal sinuses re main well aerated. IMPRESSION: No acute intracranial abnormalities are demonstrated. POS: [facility]
--- NOTE | 2018-07-22 17:04 | RAD ---
CHEST ONE VIEW: 07/22/18 COMPARISON: 05/19/18. HISTORY: CVA four years ago. Right arm weakness. FINDINGS: Normal cardiac silhouette. Pulmonary vessels and hilum are normal. Costophrenic angles are clear. No consolidation or mass. No pneumothorax or osseous abnormalities. IMPRESSION: No acute cardiopulmonary process. POS: [facility]
[2018-07-22 17:17] LABS: ALT (SGPT) 11 U/L (8-55); AST (SGOT) 18 U/L (5-34); Albumin 3.9 g/dL (3.4-4.8); Alkaline Phosphatase 50 U/L (40-150); Anion Gap 12 mmol/L (10-20); BUN (Urea Nitrogen) 17 mg/dL (9.8-20.1); Bilirubin, Total 0.3 mg/dL (0.2-1.2); Calc. Creatinine Clearance 0 mL/min (70-130); Calcium 9.8 mg/dL (7.8-10.44); Carbon Dioxide 33 mmol/L (23-31); Chloride 98 mmol/L (98-107); Estimated GFR-MDRD 76; Globulin 3.9 g/dL (2.4-3.5); Glucose 167 mg/dL (80-115); Potassium 3.6 mmol/L (3.5-5.1); Protein, Total 7.8 g/dL (6.0-8.3); Sodium 139 mmol/L (136-145)
[2018-07-22 17:50] LABS: Bilirubin Negative (Negative); Blood, Urine Moderate (Negative); Clarity CLEAR (Clear); Glucose, Urine (Dipstick) >=1000 mg/dL (Negative); Leukocyte Negative (Negative); Nitrite Negative (Negative); Protein, Urine (Dipstick) 30 mg/dL (Neg-Trace); Specific Gravity, Urine 1.012 (1.002-1.036); Urobilinogen 0.2 mg/dL (0.2-1.0); pH, Urine 6.5 (5.0-9.0)
[2018-07-22 17:53] LABS: Bacteria/HPF None Seen HPF (None Seen); Hyaline Casts/LPF 0-3 HYALINE CAST LPF (0-3 Hyaline); Squamous Epithelial 0-3 HPF (0-3); WBC/HPF 0-3 HPF (0-3)
[2018-07-22 17:54] LABS: Yeast-AUWi Flag 35.7 (0-25.0)
[2018-07-22 18:14] LABS: Yeast-All Forms None Seen HPF (None Seen)
[2018-07-22 19:17] LABS: Amphetamine Not Detected (NotDetected); Barbiturates Screen Not Detected (NotDetected); Benzodiazepine Screen Not Detected (NotDetected); Cocaine Metabolite Screen Not Detected (NotDetected); Medtox Control Line Valid? VALID (VALID); Medtox Reader # READER 1; Methadone Not Detected (NotDetected); Methamphetamine Not Detected (NotDetected); Opiate Screen Not Detected (NotDetected); Oxycodone Screen Not Detected (NotDetected); Phencyclidine (PCP) Not Detected (NotDetected); THC/Cannabinoid Screen Not Detected (NotDetected); Tricyclic Screen Not Detected (NotDetected)
== END 2018-07-22 20:41 | disposition home or self-care (01) ==
LOC: ERS 15:53
DX: R53.1 Weakness (principal); E10.9 Type 1 diabetes mellitus without complications; E78.5 Hyperlipidemia, unspecified; I10 Essential (primary) hypertension; F41.9 Anxiety disorder, unspecified; Z86.73 Personal history of transient ischemic attack (TIA), and cerebral infarction without residual deficits; Z79.899 Other long term (current) drug therapy; Z79.82 Long term (current) use of aspirin
CPT/HCPCS: 36415; 36416; 70450; 71045; 80053; 80306; 81003; 81015; 85025; 87077; 87086

== ENCOUNTER 2018-09-30 05:31 | Emergency (ER) | payer MEDICARE ==
[2018-09-30] MEDS ORDERED: Metoclopramide HCl 10 MG/2 ML VIAL ONE (06:31)
[2018-09-30] MEDS ORDERED: Acetaminophen 500 MG TAB ONE (06:31)
[2018-09-30 07:03] LABS: #Basophils 0.1 thou/uL (0.0-0.2); #Eosinphils 0.1 thou/uL (0.0-0.7); #Lymphocytes 1.5 thou/uL (1.20-3.40); #Monocytes 0.6 thou/uL (0.11-0.59); #Neutrophils 2.6 thou/uL (1.40-6.50); %Basophils 1.3 % (0.0-1.0); %Eosinophils 2.9 % (0.0-10.0); %Lymphocytes 30.3 % (21.0-51.0); %Monocytes 12.5 % (0.0-10.0); Hemoglobin 12.2 g/dL (12.0-16.0); Mean Corpuscular HGB CONC 33.3 g/dL (32.0-36.0); Mean Corpuscular Hemoglobin 30.4 pg (27.0-31.0); Mean Corpuscular Volume 91.2 fL (78.0-98.0); Mean Platelet Volume 9.4 fL (7.4-10.4); Platelet Count 188 thou/uL (130-400); Red Blood Cell (RBC) Count 4.03 mill/uL (4.20-5.40); White Blood Cell (WBC) Count 4.8 thou/uL (4.8-10.8)
[2018-09-30 07:20] LABS: ALT (SGPT) 10 U/L (8-55); AST (SGOT) 13 U/L (5-34); Albumin 3.7 g/dL (3.4-4.8); Alkaline Phosphatase 41 U/L (40-150); Anion Gap 14 mmol/L (10-20); BUN (Urea Nitrogen) 15 mg/dL (9.8-20.1); Bilirubin, Total 0.5 mg/dL (0.2-1.2); CK (CPK) 142 U/L (29-168); Calc. Creatinine Clearance 0 mL/min (70-130); Calcium 9.6 mg/dL (7.8-10.44); Carbon Dioxide 26 mmol/L (23-31); Chloride 101 mmol/L (98-107); Estimated GFR-MDRD 79; Globulin 3.4 g/dL (2.4-3.5); Glucose 426 mg/dL (80-115); Potassium 3.9 mmol/L (3.5-5.1); Protein, Total 7.1 g/dL (6.0-8.3); Sodium 137 mmol/L (136-145)
[2018-09-30 07:23] LABS: CKMB 5.7 ng/mL (0-6.6); Troponin I 0.015 ng/mL (< 0.028)
[2018-09-30 07:45] LABS: RBC Morphology Normal
--- NOTE | 2018-09-30 07:54 | CT ---
PRELIMINARY REPORT/[facility]/EMERGENTY AFTER-HOURS PROCEDURE CT Head Without Intravenous Contrast EXAM DATE/TIME: 09/30/2018 6:22 AM CLINICAL HISTORY: 63 years old, female; Signs and symptoms; Dizziness; Patient HX: PT presents for headache and dizzine ss. She has a history of migraines but keeps repeating the same sentence and states she has a history of stroke. PT was admitted for stroke in march. PT did have drift in the right arm which appears to be new. Pt's symptoms started at 10pm last night. PT will have stroke workup. She was able to walk w/o ataxia. PT did have urinalysis due to her stating her urine has been smelling lately and dysuria. PT also had bnp because she states she has had leg swelling bilaterally. No SOB. TECHNIQUE: Axial computed tomography images of the head/brain without intravenous contrast. All CT scans at this facility use at least one of these dose optimization techniques: automated expos ure control; mA and/or kV adjustment per patient size (includes targeted exams where dose is matched to clinical indication); or iterative reconstruction. COMPARISON: No relevant prior studies available. FINDINGS: Brain: Normal. No hemorrhage. No significant white matter disease. No edema. Ventricles: Normal. No ventriculomegaly. Bones/joints: Normal. No acute fracture. Sinuses: Normal as visualized. No acute sinusitis. Mastoid air cells: Normal as visualized. No mastoid effusion. Soft tissues: Normal. IMPRESSION: No acute intracranial hemorrhage. Thank you for allowing us to participate in the care of your patient. FINAL REPORT CT BRAIN WITHOUT CONTRAST: No acute intracranial hemorrhage or mass effect. Code QA. POS: [facility]
--- NOTE | 2018-09-30 08:26 | RAD ---
ONE VIEW CHEST: HISTORY: Pain. COMPARISON: 07/22/2018. FINDINGS: Slight elongation of the aorta. Normal cardiac silhouette. The pulmonary vessels and hilum are norm al. Costophrenic angles are clear. No masses or consolidation. No pneumothorax or osseous abnormal ities. Mild curvature of the spine, likely positional. IMPRESSION: No acute cardiopulmonary process. POS: [facility]
[2018-09-30 09:23] LABS: Bilirubin Negative (Negative); Blood, Urine Trace (Negative); Clarity CLEAR (Clear); Glucose, Urine (Dipstick) >=1000 mg/dL (Negative); Leukocyte Negative (Negative); Nitrite Negative (Negative); Protein, Urine (Dipstick) 100 mg/dL (Neg-Trace); Specific Gravity, Urine 1.028 (1.002-1.036); Urobilinogen 0.2 mg/dL (0.2-1.0); pH, Urine 6.5 (5.0-9.0)
[2018-09-30 09:26] LABS: Bacteria/HPF None Seen HPF (None Seen); Hyaline Casts/LPF 0-3 HYALINE CAST LPF (0-3 Hyaline); Pathc Cast-AUWi Flag 0.14 (0-2.49); Squamous Epithelial 0-3 HPF (0-3); WBC/HPF 0-3 HPF (0-3)
[2018-09-30 09:45] LABS: RBC/HPF 0-3 HPF (0-3)
== END 2018-09-30 09:50 | disposition home or self-care (01) ==
LOC: ERS 05:31
DX: R51 Headache (principal); E10.9 Type 1 diabetes mellitus without complications; E78.5 Hyperlipidemia, unspecified; I10 Essential (primary) hypertension; G43.909 Migraine, unspecified, not intractable, without status migrainosus; F41.9 Anxiety disorder, unspecified; Z79.899 Other long term (current) drug therapy; Z79.82 Long term (current) use of aspirin
CPT/HCPCS: 36415; 70450; 71045; 80053; 81003; 81015; 82553; 83880; 84484; 85025; 93005; 96365; J2765

== ENCOUNTER 2018-10-11 12:02 | Emergency (ER) | payer MEDICARE ==
[2018-10-11 13:42] LABS: #Basophils 0.1 thou/uL (0.0-0.2); #Eosinphils 0.2 thou/uL (0.0-0.7); #Lymphocytes 1.7 thou/uL (1.20-3.40); #Monocytes 0.5 thou/uL (0.11-0.59); #Neutrophils 2.1 thou/uL (1.40-6.50); %Basophils 1.5 % (0.0-1.0); %Eosinophils 4.9 % (0.0-10.0); %Lymphocytes 36.8 % (21.0-51.0); %Monocytes 11.3 % (0.0-10.0); %Neutrophils 45.5 % (42.0-75.0); Hemoglobin 12.1 g/dL (12.0-16.0); Mean Corpuscular HGB CONC 35.4 g/dL (32.0-36.0); Mean Corpuscular Hemoglobin 31.4 pg (27.0-31.0); Mean Corpuscular Volume 88.6 fL (78.0-98.0); Mean Platelet Volume 9.1 fL (7.4-10.4); Platelet Count 190 thou/uL (130-400); RBC Distribution Width 11.8 % (11.5-14.5); Red Blood Cell (RBC) Count 3.87 mill/uL (4.20-5.40); White Blood Cell (WBC) Count 4.6 thou/uL (4.8-10.8)
[2018-10-11 14:05] LABS: ALT (SGPT) 10 U/L (8-55); AST (SGOT) 14 U/L (5-34); Albumin 3.4 g/dL (3.4-4.8); Alkaline Phosphatase 44 U/L (40-150); Anion Gap 11 mmol/L (10-20); BUN (Urea Nitrogen) 11 mg/dL (9.8-20.1); Bilirubin, Total 0.3 mg/dL (0.2-1.2); CK (CPK) 121 U/L (29-168); Calc. Creatinine Clearance 0 mL/min (70-130); Calcium 9.2 mg/dL (7.8-10.44); Carbon Dioxide 28 mmol/L (23-31); Chloride 99 mmol/L (98-107); Estimated GFR-MDRD 88; Globulin 3.2 g/dL (2.4-3.5); Glucose 471 mg/dL (80-115); Potassium 3.7 mmol/L (3.5-5.1); Protein, Total 6.6 g/dL (6.0-8.3); Sodium 134 mmol/L (136-145)
--- NOTE | 2018-10-11 14:06 | ULT ---
ULTRASOUND WITH DOPPLER DUPLEX VENOUS LOWER EXTREMITY RIGHT: HISTORY: 63-year-old female with right lower extremity edema. TECHNIQUE: Color flow Doppler, spectral waveform analysis of pulsed Doppler, and roberson-scale imaging with padmini john and augmentation, were used to evaluate the right common femoral, femoral, popliteal, posterior tibial, and superficial femoral, veins; and the proximal portions of the profunda femoral and greater saphenous, veins. FINDINGS: There is normal compressibility, demonstration of blood flow by color Doppler and pulsed Doppler, and response to augmentation, in all interrogated veins. IMPRESSION: Negative. No deep vein thrombosis in the right lower extremity. jn [] POS: [facility]
[2018-10-11] MEDS ORDERED: Insulin Regular 300 UNITS/3 ML VIAL ONE (14:17)
== END 2018-10-11 14:37 | disposition home or self-care (01) ==
LOC: ERS 12:02
DX: M79.604 Pain in right leg (principal); E10.65 Type 1 diabetes mellitus with hyperglycemia; E78.5 Hyperlipidemia, unspecified; I10 Essential (primary) hypertension; G43.909 Migraine, unspecified, not intractable, without status migrainosus; Z86.73 Personal history of transient ischemic attack (TIA), and cerebral infarction without residual deficits; F41.9 Anxiety disorder, unspecified; Z79.82 Long term (current) use of aspirin; Z79.899 Other long term (current) drug therapy
CPT/HCPCS: 36415; 80053; 82550; 83880; 85025; J1815

== ENCOUNTER 2018-11-09 17:38 | Inpatient (IN) | payer MEDICARE ==
[2018-11-09 18:20] LABS: #Basophils 0.1 thou/uL (0.0-0.2); #Eosinphils 0.1 thou/uL (0.0-0.7); #Lymphocytes 1.5 thou/uL (1.20-3.40); #Monocytes 0.7 thou/uL (0.11-0.59); #Neutrophils 5.1 thou/uL (1.40-6.50); %Basophils 0.9 % (0.0-1.0); %Eosinophils 1.5 % (0.0-10.0); %Lymphocytes 19.7 % (21.0-51.0); %Monocytes 8.8 % (0.0-10.0); Hemoglobin 13.9 g/dL (12.0-16.0); Mean Corpuscular HGB CONC 34.3 g/dL (32.0-36.0); Mean Corpuscular Hemoglobin 30.6 pg (27.0-31.0); Mean Corpuscular Volume 89.2 fL (78.0-98.0); Mean Platelet Volume 10.1 fL (7.4-10.4); Platelet Count 181 thou/uL (130-400); RBC Distribution Width 11.7 % (11.5-14.5); Red Blood Cell (RBC) Count 4.53 mill/uL (4.20-5.40); White Blood Cell (WBC) Count 7.4 thou/uL (4.8-10.8)
[2018-11-09 18:37] LABS: ALT (SGPT) 10 U/L (8-55); AST (SGOT) 12 U/L (5-34); Albumin 3.6 g/dL (3.4-4.8); Alkaline Phosphatase 56 U/L (40-150); Anion Gap 20 mmol/L (10-20); BUN (Urea Nitrogen) 15 mg/dL (9.8-20.1); Bilirubin, Total 0.3 mg/dL (0.2-1.2); Calc. Creatinine Clearance 0 mL/min (70-130); Calcium 9.9 mg/dL (7.8-10.44); Carbon Dioxide 23 mmol/L (23-31); Chloride 94 mmol/L (98-107); Estimated GFR-MDRD 62; Globulin 3.9 g/dL (2.4-3.5); Potassium 4.4 mmol/L (3.5-5.1); Protein, Total 7.5 g/dL (6.0-8.3); Sodium 133 mmol/L (136-145)
[2018-11-09 18:44] LABS: Glucose 638 mg/dL (80-115)
[2018-11-09] MEDS ORDERED: Insulin Regular 300 UNITS/3 ML VIAL ONE (19:14)
[2018-11-09] MEDS ORDERED: Piperacillin/Tazobactam 3.375 GM VIAL ONE (19:18)
[2018-11-09] MEDS ORDERED: Sodium Chloride 0.9% 100 ML ONE (19:18)
[2018-11-09 20:07] LABS: Base Excess-Venous 4.3 mmol/L (0 (+/- 2.5)); Bicarbonate (HCO3v) 30.1 mmol/L (22.0-29.0); CO2 Tension (PvCO2) 48.8 mmHg (41.0-51.0); Calcium, Ionized 1.17 mmol/L (1.12-1.32); Hemoglobin - Calc 13.3 g/dL (12.0-18.0); O2 Tension (PvO2) 42.1 mmHg (35.0-45.0); T. Carbon Dioxide 31.6 mmol/L (1.0-85.0); pH (Venous) 7.399 (7.35-7.45); vO2 Saturation-calc 76.7 % (94-98)
[2018-11-09] MEDS ORDERED: Linezolid 600 MG in Premix Bag 1 BAG IVPB SCH (21:00)
--- NOTE | 2018-11-09 21:53 | RAD ---
RIGHT FOOT THREE VIEWS: History: Hyperglycemia. Right foot wound. FINDINGS: There is soft tissue swelling. No definite subcutaneous emphysema. Lisfranc alignment is maintained. There is no periosteal reaction. No destructive changes. No fracture. There is degenerative change in volving the third interphalangeal joint space. IMPRESSION: Soft tissue swelling. No radiographic evidence of osteomyelitis. POS: [facility]
[2018-11-09] MEDS ORDERED: Sodium Chloride 0.45% 1,000 ML IV SCH (22:41)
[2018-11-09 23:05] VITALS: BMI 36.9
[2018-11-09] MEDS ORDERED: Dextrose 50% Abboject 50 ML SYRINGE SLOW IVP PRN (23:11)
[2018-11-09] MEDS ORDERED: Dextrose 5% in Water 1,000 ML IV PRN (23:11)
[2018-11-09] MEDS ORDERED: Rosuvastatin 20 MG TAB PO SCH (23:15)
[2018-11-09] MEDS ORDERED: Sodium Chloride 0.9% 1,000 ML IV SCH (23:45)
[2018-11-09] MEDS ORDERED: Ondansetron ODT 4 MG TAB PO PRN (23:52)
[2018-11-09] MEDS ORDERED: Senokot S 8.6-50 MG TAB PO PRN (23:52)
[2018-11-09] MEDS ORDERED: Ondansetron PF 4 MG/2 ML Vial IVP PRN (23:52)
[2018-11-09] MEDS ORDERED: Bisacodyl 5 MG TAB PO PRN (23:52)
[2018-11-09] MEDS ORDERED: Zolpidem Tartrate 5 MG TAB PO PRN (23:52)
[2018-11-10] MEDS: HumaLOG 300 UNITS/3 ML VIAL SC PRN ×5 (00:41→21:22)
[2018-11-10] MEDS: Piperacillin/Tazobactam 3.375 GM in Sodium Chloride 0.9% 100 ML IVPB SCH ×4 (01:00→20:20)
[2018-11-10] MEDS: Acetaminophen/Codeine 30-300mg Tablet PO PRN ×2 (04:41→15:28)
[2018-11-10 06:03] LABS: #Basophils 0.1 thou/uL (0.0-0.2); #Eosinphils 0.3 thou/uL (0.0-0.7); #Lymphocytes 1.8 thou/uL (1.20-3.40); #Monocytes 0.7 thou/uL (0.11-0.59); #Neutrophils 3.5 thou/uL (1.40-6.50); %Basophils 1.4 % (0.0-1.0); %Eosinophils 4.4 % (0.0-10.0); %Monocytes 10.8 % (0.0-10.0); %Neutrophils 55.5 % (42.0-75.0); Hemoglobin 12.4 g/dL (12.0-16.0); Mean Corpuscular HGB CONC 34.8 g/dL (32.0-36.0); Mean Corpuscular Hemoglobin 30.8 pg (27.0-31.0); Mean Corpuscular Volume 88.4 fL (78.0-98.0); Mean Platelet Volume 9.7 fL (7.4-10.4); Platelet Count 182 thou/uL (130-400); RBC Distribution Width 11.8 % (11.5-14.5); Red Blood Cell (RBC) Count 4.03 mill/uL (4.20-5.40); White Blood Cell (WBC) Count 6.3 thou/uL (4.8-10.8)
[2018-11-10 06:28] LABS: Anion Gap 14 mmol/L (10-20); BUN (Urea Nitrogen) 13 mg/dL (9.8-20.1); Calc. Creatinine Clearance 122 mL/min (70-130); Calcium 9.4 mg/dL (7.8-10.44); Carbon Dioxide 27 mmol/L (23-31); Chloride 100 mmol/L (98-107); Estimated GFR-MDRD 85; Glucose 346 mg/dL (80-115); Potassium 3.5 mmol/L (3.5-5.1); Sodium 137 mmol/L (136-145)
[2018-11-10] MEDS: Enoxaparin Sodium 40 MG/0.4 ML SYRINGE SC SCH (07:58)
[2018-11-10] MEDS: Famotidine 20 MG TAB PO SCH ×2 (07:58→20:21)
[2018-11-10] MEDS: Clopidogrel Bisulfate 75 MG TAB PO SCH (07:58)
[2018-11-10] MEDS: Lisinopril 20 MG TAB PO SCH (07:59)
[2018-11-10] MEDS ORDERED: hydrALAZINE 20 MG/ML VIAL SLOW IVP PRN (08:06)
[2018-11-10] MEDS ORDERED: Cepastat Lozenges 1 LOZ PO PRN (08:06)
[2018-11-10] MEDS ORDERED: Sodium Chloride 0.65% Nasal 44 ML BOT EA NARE PRN (08:06)
[2018-11-10] MEDS ORDERED: Loperamide HCl 2 MG CAP PO PRN (08:06)
[2018-11-10] MEDS ORDERED: Loratadine 10 MG TAB PO PRN (08:06)
[2018-11-10] MEDS ORDERED: Artificial Tears 18 DROP/0.9 ML EA EYE PRN (08:06)
[2018-11-10] MEDS ORDERED: Eucerin (Mineral Oil/Petrolatum,White) 30 gm Jar TOP PRN (08:06)
[2018-11-10] MEDS ORDERED: Diabetic Tussin 200 MG/10 ML UDCUP PO PRN (08:06)
[2018-11-10] MEDS ORDERED: Morphine 4 MG/ML VIAL IV PRN (08:29)
[2018-11-10] MEDS ORDERED: Famotidine/PF 20 mg/2ml Vial SLOW IVP SCH (09:00)
[2018-11-10] MEDS ORDERED: Prevnar 13-Val Conj/PF 0.5 ML SYRINGE IM ONE (09:00)
[2018-11-10] MEDS: Linezolid 600 MG in Premix Bag 1 BAG IVPB SCH ×2 (10:29→20:20)
[2018-11-10] MEDS: Furosemide 40 MG TAB PO SCH (10:30)
[2018-11-10] MEDS: Saccharomyces boulardii 250 MG CAP PO SCH (10:30)
--- NOTE | 2018-11-10 10:53 | HP ---
CHIEF COMPLAINT: "I was referred to come to the hospital to be seen by a doctor due to my foot." HISTORY OF PRESENT ILLNESS: This is a 63-year-old female with past medical history of diabetes mellitus type 2, on insulin. The patient also have a history of blindness in the left eye, hyperlipidemia, hypertension, is presenting with hyperglycemia, and right foot evaluation. Per the patient, she went to go see her cook dinner, Dr. Bo, who examined her foot and became worried and told her to come to our hospital. The patient stated that otherwise she does not have any complaints at this time. The patient denies any fever, nausea, vomiting, chest pain, shortness of breath, coughing. Of note, the patient states that she went to an urgent care center a week ago to have her foot inspected due to localized foot pain with ulcer at the second toe. The patient states that walking makes the toe hurt and the patient said that she saw her cook dinner today. REVIEW OF SYSTEMS: Positive for injury to right second toe, otherwise as documented in the HPI. All other systems have been reviewed and are negative. PAST MEDICAL HISTORY: Diabetes mellitus, left eye blindness, hyperlipidemia, hypertension, chronic migraine, CVA in the past. PAST SURGICAL HISTORY: Left foot surgery, bilateral eye surgery, appendectomy, hysterectomy. Past history of thoracotomy, tonsillectomy. PSYCHIATRIC HISTORY: Anxiety. FAMILY HISTORY: Reviewed and noncontributory to this visit. SOCIAL HISTORY: The patient denies alcohol use. Denies any illicit drug use. The patient denies smoking history. The patient lives at home with family. ALLERGIES: THE PATIENT IS ALLERGIC TO SULFA AND TRIMETHOPRIM. CURRENT MEDICATIONS: The patient takes; 1. Lasix 40 mg. 2. Aspirin 81 mg. 3. Crestor 40 mg. 4. Humalog. 5. Lantus. PHYSICAL EXAMINATION: VITAL SIGNS: The patient's blood pressure is 192/91, pulse of 82, respiratory rate of 16, temperature 98.3, O2 saturation is 98. GENERAL: The patient is a pleasant lady, lying in bed, does not appear to be in any acute distress. The patient is alert and oriented x3. Speaking to me in full sentences. HEENT: Normocephalic, atraumatic. Pupils are equally round and reactive to light. Extraocular movements are intact. No scleral icterus. LUNGS: Clear to auscultation bilaterally. No wheezing, no rales, no rhonchi are appreciated. CARDIAC: Positive S1 and S2. Regular rate and rhythm. No murmurs, no gallops, no rubs appreciated. ABDOMEN: Soft, nontender, and nondistended. EXTREMITIES: The patient has 5/5 upper extremity strength and 5/5 lower extremity strength. The patient has laceration at the second toe of right foot. There is some dark eschar around the wound site. The patient has tender to palpation around the area. The patient does have good sensation at the right leg and at the foot. The patient does have good pulses bilaterally. NEUROLOGIC: Cranial nerves 2 through 12 grossly intact. No neurologic deficits noted. SKIN: Dry. Refer to the description of the right toe at the lower extremity part of the physical exam. PSYCHIATRIC: Normal affect. Alert and oriented x3. LABORATORY DATA: WBC 7.4, hemoglobin is 13.9, hematocrit is 40.4, platelet count is 181. ABG; pH is 7.3, pCO2 is 48.8, pO2 is 42.1. CHEMISTRY; sodium is 133, potassium is 4.4, chloride is 94, carbon dioxide 23, anion gap of 20, BUN is 15, creatinine is 1.07, GFR 62, glucose is 638. Serum osmolality is 315. C-reactive protein is 1.3. Imaging; foot x-ray showed soft tissue swelling. No radiographic evidence of osteomyelitis. ASSESSMENT AND PLAN: This is a 63-year-old female, being admitted for; 1. Right second toe wound/ulcer with underlying cellulitis. At this point, the patient has been started on Zyvox and Zosyn. The patient has been started on Zyvox because the patient is allergic to vancomycin. We will get MRI of the right foot in the a.m. to rule out osteomyelitis. We will continue the patient on current management. 2. Severe hyperglycemia. At this point, we are going to start the patient on insulin sliding scale and we are going to adjust the patient's insulin regimen to see if we can better control the patient's blood sugars. 3. Diabetes mellitus type 2, uncontrolled. Seen that the patient has some underlying noncompliance. At this point, we are going to continue the patient on insulin sliding scale and adjust the patient's insulin regimen p.r.n. 4. Hypertension. We will monitor the patient's blood pressure closely and we will treat the patient's hypertension accordingly. 5. History of stroke. Currently, the patient is stable. We will monitor the patient. 6. Hyperlipidemia. We will continue the patient on her home medications. 7. Deep venous thrombosis and gastrointestinal prophylaxis. Job ID: [id number]
--- NOTE | 2018-11-10 11:04 | PDOC.PN ---
- Subjective Encounter Start Date: 11/10/18 Encounter Start Time: 07:40 -: old records requested/rev Patient seen and examined. No new complaints. No overnight events - Objective Resuscitation Status - Order Detail: 11/09/18 23:11 Resuscitation Status Routine Resuscitation Status: FULL: Full Resuscitation MAR Reviewed: Yes Vital Signs & Weight: Vital Signs (12 hours) Temp Pulse Resp BP Pulse Ox 11/10/18 08:00 99.4 F 82 14 147/75 H 99 11/10/18 04:00 97.9 F 83 20 160/78 H 100 Weight Weight 250 lb 0.067 oz I&O: 11/09/18 11/10/18 11/11/18 06:59 06:59 06:59 Intake Total 1040 Output Total 1000 Balance 40 Result Diagrams: 11/10/18 05:36 11/10/18 05:36 Additional Labs: Accuchecks 11/10/18 11/10/18 11/10/18 10:35 04:20 00:36 POC Glucose 307 H 391 H 381 H 11/09/18 20:35 POC Glucose 382 H Radiology Reviewed by me: Yes (xray foot) Phys Exam - Physical Examination Constitutional: NAD HEENT: PERRLA, moist MMs, sclera anicteric Neck: no JVD, supple Respiratory: no wheezing, no rales, no rhonchi Cardiovascular: RRR, no significant murmur, no rub Gastrointestinal: soft, non-tender, no distention, positive bowel sounds Musculoskeletal: no edema, pulses present right foot cellulitis Neurological: non-focal, normal sensation, moves all 4 limbs Lymphatic: no nodes Psychiatric: normal affect, A&O x 3 Skin: no rash, normal turgor Dx/Plan (1) Diabetic foot infection Code(s): E11.628 - TYPE 2 DIABETES MELLITUS WITH OTHER SKIN COMPLICATIONS; L08.9 - LOCAL INFECTION OF THE SKIN AND SUBCUTANEOUS TISSUE, UNSP Status: Acute Comment: right foot cellulitis (2) Diabetes type 2, uncontrolled Code(s): E11.65 - TYPE 2 DIABETES MELLITUS WITH HYPERGLYCEMIA Status: Chronic (3) Dyslipidemia Code(s): E78.5 - HYPERLIPIDEMIA, UNSPECIFIED Status: Chronic (4) Hypertension Code(s): I10 - ESSENTIAL (PRIMARY) HYPERTENSION Status: Chronic (5) Obesity (BMI 30-39.9) Code(s): E66.9 - OBESITY, UNSPECIFIED Status: Chronic - Plan cont current plan of care, plan discussed w/ family, continue antibiotics * continue zyvox and zosyn * follow culture * today MRI foot to rule out osteomyelitis * medication reviewed as below * symptomatic treatment * discussed with family * wound care * will start lantus 50 unit sc bid and adjust insulin as needed * pain control. Review of Systems - Review of Systems Eyes: negative: Pain, Vision Change, Conjunctivae Inflammation, Eyelid Inflammation, Redness, Other ENT: negative: Ear Pain, Ear Discharge, Nose Pain, Nose Discharge, Nose Congestion, Mouth Pain, Mouth Swelling, Throat Pain, Throat Swelling, Other Respiratory: negative: Cough, Dry, Shortness of Breath, Hemoptysis, SOB with Excertion, Pleuritic Pain, Sputum, Wheezing Cardiovascular: negative: chest pain, palpitations, orthopnea, paroxysmal nocturnal dyspnea, edema, light headedness, other Gastrointestinal: negative: Nausea, Vomiting, Abdominal Pain, Diarrhea, Constipation, Melena, Hematochezia, Other Genitourinary: negative: Dysuria, Frequency, Incontinence, Hematuria, Retention , Other Musculoskeletal: Foot Pain. negative: Neck Pain, Shoulder Pain, Arm Pain, Back Pain, Hand Pain, Leg Pain, Other - Medications/Allergies Allergies/Adverse Reactions: Allergies Allergy/AdvReac Type Severity Reaction Status Date / Time sulfamethoxazole Allergy Unknown Verified 07/15/18 11:23 [From Bactrim] trimethoprim [From Bactrim] Allergy Unknown Verified 07/15/18 11:23 vancomycin Allergy Verified 11/09/18 23:09 Medications: Current Medications Acetaminophen (Tylenol) 650 mg PO Q4H PRN PRN Reason: Headache/Fever/Mild Pain (1-3) Acetaminophen/Codeine Phosphate (Tylenol #3) 1 tab PO Q6H PRN PRN Reason: Pain Last Admin: 11/10/18 04:41 Dose: 1 tab Hydrocodone Bitart/Acetaminophen ([place] 5/325) 1 tab PO Q4H PRN PRN Reason: Moderate Pain (4-6) Artificial Tears (Tears Naturale) 2 drop EA EYE PRN PRN PRN Reason: Dry Eyes Aspirin (Aspirin Chewable) 81 mg PO DAILY [facility] Last Admin: 11/10/18 10:30 Dose: 81 mg Bisacodyl (Dulcolax) 10 mg PO DAILYPRN PRN PRN Reason: Constipation Clopidogrel Bisulfate (Plavix) 75 mg PO DAILY [facility] Last Admin: 11/10/18 07:58 Dose: 75 mg Dextrose/Water (Dextrose 50%) 25 gm SLOW IVP PRN PRN PRN Reason: Hypoglycemia Enoxaparin Sodium (Lovenox) 40 mg SC 0900 [facility] Last Admin: 11/10/18 07:58 Dose: 40 mg Famotidine (Pepcid) 20 mg PO BID [facility] Last Admin: 11/10/18 07:58 Dose: 20 mg Furosemide (Lasix) 40 mg PO DAILY [facility] Last Admin: 11/10/18 10:30 Dose: 40 mg Glucagon (Glucagon) 1 mg IM PRN PRN PRN Reason: Hypoglycemia Guaifenesin (Robitussin Sf) 200 mg PO Q4H PRN PRN Reason: Cough Hydralazine HCl (Apresoline) 10 mg SLOW IVP Q4H PRN PRN Reason: SBP > 180 and HR < 70 Linezolid 600 mg/ Device 300 mls @ 150 mls/hr IVPB Q12HR [facility] Last Admin: 11/10/18 10:29 Dose: 300 mls Sodium Chloride (Normal Saline 0.9%) 1,000 mls @ 70 mls/hr IV .[id number] [facility] Stop: 11/10/18 14:02 Last Admin: 11/10/18 00:27 Dose: 1,000 mls Dextrose/Water (D5w) 1,000 mls @ 0 mls/hr IV .Q0M PRN PRN Reason: Hypoglycemia Piperacillin Sod/Tazobactam (Sod 3.375 gm/ Sodium Chloride) 100 mls @ 200 mls/ hr IVPB 0200,0800,1400,2000 [facility] Last Admin: 11/10/18 07:58 Dose: 100 mls Insulin Human Lispro (Humalog) 0 units SC .MILD SLIDING SCALE PRN PRN Reason: Mild Correctional Scale Last Admin: 11/10/18 10:35 Dose: 5 unit Insulin Human Lispro (Humalog) 0 units SC .BEDTIME SLIDING SC PRN PRN Reason: Bedtime Correctional Scale Last Admin: 11/10/18 04:21 Dose: 5 unit Lisinopril (Zestril) 20 mg PO DAILY [facility] Last Admin: 11/10/18 07:59 Dose: 20 mg Loperamide HCl (Imodium) 2 mg PO PRN PRN PRN Reason: Diarrhea/Loose Stools Loratadine (Claritin) 10 mg PO DAILYPRN PRN PRN Reason: Sinus Symptoms Mineral Oil/White Petrolatum (Eucerin Cream) 0 gm TOP BIDPRN PRN PRN Reason: Dry Skin Miscellaneous Medication (Pharmacy To Dose) 1 each IVPB PRN PRN PRN Reason: Pharmacy to dose Morphine Sulfate (Morphine) 2 mg IV Q4H PRN PRN Reason: Pain Ondansetron HCl (Zofran Odt) 4 mg PO Q6H PRN PRN Reason: Nausea/Vomiting Ondansetron HCl (Zofran) 4 mg IVP Q6H PRN PRN Reason: Nausea/Vomiting Rosuvastatin Calcium (Crestor) 40 mg PO HS [facility] Saccharomyces Boulardii (Florastor) 250 mg PO DAILY [facility] Last Admin: 11/10/18 10:30 Dose: 250 mg Senna/Docusate Sodium (Senokot S) 2 tab PO BID PRN PRN Reason: Constipation Sodium Chloride (Flush - Normal Saline) 10 ml IVF Q12HR [facility] Sodium Chloride (Flush - Normal Saline) 10 ml IVF PRN PRN PRN Reason: Saline Flush Sodium Chloride (Baker Nasal [place] 0.65%) 0 ml EA NARE QIDPRN PRN PRN Reason: Nasal Congestion Throat Lozenges (Cepastat Lozenges) 1 brendan PO Q2H PRN PRN Reason: Sore Throat Zolpidem Tartrate (Ambien) 5 mg PO HSPRN PRN PRN Reason: Insomnia
--- NOTE | 2018-11-10 16:53 | MRI ---
RIGHT FOOT MRI WITHOUT IV CONTRAST: HISTORY: A 63-year-old female with a history of a right foot wound and high blood sugar. Bandage material noted over the second toe. There is minimal soft tissue swelling of the second toe, as well as some more diffuse subcutaneous edema and fat stranding of the entire foot, particularly d orsally. No abnormal marrow signal to suggest osteomyelitis. No evidence for a drainable abscess. Degenerative and osteoarthrosis changes are noted, including the first metatarsophalangeal joint. Mi nimal nonspecific T2 hyperintensity within the foot intrinsic muscles, but this can be seen in patien ts with diabetes. IMPRESSION: Soft tissue swelling of the second toe but no evidence for abscess or osteomyelitis. Diffuse subcuta neous swelling and edema changes of the foot, particularly over the dorsal aspect. Generalized degen erative and osteoarthrosis changes. POS: [facility]
[2018-11-10] MEDS: Acetaminophen 325 MG TAB PO PRN (20:21)
[2018-11-10] MEDS: Rosuvastatin 20 MG TAB PO SCH (20:22)
[2018-11-10] MEDS ORDERED: Insulin Glargine 15 UNITS in Pre-Filled Syringe 1 EACH SC SCH (21:45)
[2018-11-11] MEDS: HYDROcodone/Acetaminophen 5/325 mg Tablet PO PRN ×2 (00:10→17:28)
[2018-11-11] MEDS: Piperacillin/Tazobactam 3.375 GM in Sodium Chloride 0.9% 100 ML IVPB SCH ×4 (02:34→19:56)
[2018-11-11] MEDS: Acetaminophen/Codeine 30-300mg Tablet PO PRN (03:55)
[2018-11-11] MEDS: HumaLOG 300 UNITS/3 ML VIAL SC PRN ×4 (05:32→20:30)
[2018-11-11 06:17] LABS: #Eosinphils 0.2 thou/uL (0.0-0.7); #Lymphocytes 1.5 thou/uL (1.20-3.40); #Monocytes 0.6 thou/uL (0.11-0.59); #Neutrophils 3.7 thou/uL (1.40-6.50); %Basophils 0.7 % (0.0-1.0); %Eosinophils 3.9 % (0.0-10.0); %Lymphocytes 24.8 % (21.0-51.0); %Monocytes 10.4 % (0.0-10.0); %Neutrophils 60.2 % (42.0-75.0); Hemoglobin 11.5 g/dL (12.0-16.0); Mean Corpuscular HGB CONC 34.9 g/dL (32.0-36.0); Mean Corpuscular Hemoglobin 31.1 pg (27.0-31.0); Mean Corpuscular Volume 89.1 fL (78.0-98.0); Mean Platelet Volume 10.1 fL (7.4-10.4); Platelet Count 155 thou/uL (130-400); RBC Distribution Width 11.7 % (11.5-14.5); Red Blood Cell (RBC) Count 3.71 mill/uL (4.20-5.40); White Blood Cell (WBC) Count 6.1 thou/uL (4.8-10.8)
[2018-11-11 06:37] LABS: Anion Gap 12 mmol/L (10-20); BUN (Urea Nitrogen) 9 mg/dL (9.8-20.1); CRP (Inflammatory) 1.38 mg/dL (= or < 0.5); Calc. Creatinine Clearance 115 mL/min (70-130); Calcium 8.6 mg/dL (7.8-10.44); Carbon Dioxide 30 mmol/L (23-31); Chloride 99 mmol/L (98-107); Estimated GFR-MDRD 79; Glucose 457 mg/dL (80-115); Potassium 3.5 mmol/L (3.5-5.1); Sodium 137 mmol/L (136-145)
[2018-11-11] MEDS: Famotidine 20 MG TAB PO SCH ×2 (07:45→20:48)
[2018-11-11] MEDS: Saccharomyces boulardii 250 MG CAP PO SCH (07:45)
[2018-11-11] MEDS: Clopidogrel Bisulfate 75 MG TAB PO SCH (07:45)
[2018-11-11] MEDS: Furosemide 40 MG TAB PO SCH (07:46)
[2018-11-11] MEDS: Enoxaparin Sodium 40 MG/0.4 ML SYRINGE SC SCH (07:46)
[2018-11-11] MEDS: Lisinopril 20 MG TAB PO SCH (09:14)
[2018-11-11] MEDS: Linezolid 600 MG in Premix Bag 1 BAG IVPB SCH ×2 (09:14→21:18)
[2018-11-11] MEDS: Insulin Glargine 25 UNITS in Pre-Filled Syringe 1 EACH SC SCH (09:21)
--- NOTE | 2018-11-11 09:29 | PDOC.PN ---
- Subjective Encounter Start Date: 11/11/18 Encounter Start Time: 07:50 Patient seen and examined. No new complaints. No overnight events - Objective Resuscitation Status - Order Detail: 11/09/18 23:11 Resuscitation Status Routine Resuscitation Status: FULL: Full Resuscitation MAR Reviewed: Yes Vital Signs & Weight: Vital Signs (12 hours) Temp Pulse Resp BP Pulse Ox 11/11/18 07:10 98.3 F 75 16 121/62 99 11/11/18 04:31 98.5 F 86 18 160/83 H 97 11/11/18 00:18 98.8 F 79 16 153/78 H 96 Weight Admit Weight 250 lb 0.067 oz Weight 250 lb 0.067 oz I&O: 11/10/18 11/11/18 11/12/18 06:59 06:59 06:59 Intake Total 1040 2400 Output Total 1000 2900 Balance 40 -500 Result Diagrams: 11/11/18 05:17 11/11/18 05:17 Additional Labs: Accuchecks 11/11/18 11/11/18 11/10/18 05:17 01:21 20:57 POC Glucose 437 H 534 H 509 H 11/10/18 11/10/18 15:42 10:35 POC Glucose 464 H 307 H Radiology Reviewed by me: Yes (mri- no osteomyelitis) Phys Exam - Physical Examination Constitutional: NAD HEENT: PERRLA, moist MMs, sclera anicteric Neck: no JVD, supple Respiratory: no wheezing, no rales, no rhonchi Cardiovascular: RRR, no significant murmur, no rub Gastrointestinal: soft, non-tender, no distention, positive bowel sounds Musculoskeletal: no edema, pulses present right foot cellulitis Neurological: non-focal, normal sensation, moves all 4 limbs Lymphatic: no nodes Psychiatric: normal affect, A&O x 3 Skin: no rash, normal turgor Dx/Plan (1) Diabetic foot infection Code(s): E11.628 - TYPE 2 DIABETES MELLITUS WITH OTHER SKIN COMPLICATIONS; L08.9 - LOCAL INFECTION OF THE SKIN AND SUBCUTANEOUS TISSUE, UNSP Status: Acute Comment: right foot cellulitis (2) Diabetes type 2, uncontrolled Code(s): E11.65 - TYPE 2 DIABETES MELLITUS WITH HYPERGLYCEMIA Status: Chronic (3) Dyslipidemia Code(s): E78.5 - HYPERLIPIDEMIA, UNSPECIFIED Status: Chronic (4) Hypertension Code(s): I10 - ESSENTIAL (PRIMARY) HYPERTENSION Status: Chronic (5) Obesity (BMI 30-39.9) Code(s): E66.9 - OBESITY, UNSPECIFIED Status: Chronic - Plan cont current plan of care, plan discussed w/ family, continue antibiotics * increase lantus 25 unit sc bid * continue zyvox, zosyn * medication reviewed as below * symptomatic treatment * will control diabetes * discussed with family bedside. Review of Systems - Review of Systems ENT: negative: Ear Pain, Ear Discharge, Nose Pain, Nose Discharge, Nose Congestion, Mouth Pain, Mouth Swelling, Throat Pain, Throat Swelling, Other Respiratory: negative: Cough, Dry, Shortness of Breath, Hemoptysis, SOB with Excertion, Pleuritic Pain, Sputum, Wheezing Cardiovascular: negative: chest pain, palpitations, orthopnea, paroxysmal nocturnal dyspnea, edema, light headedness, other Gastrointestinal: negative: Nausea, Vomiting, Abdominal Pain, Diarrhea, Constipation, Melena, Hematochezia, Other Genitourinary: negative: Dysuria, Frequency, Incontinence, Hematuria, Retention , Other Musculoskeletal: negative: Neck Pain, Shoulder Pain, Arm Pain, Back Pain, Hand Pain, Leg Pain, Foot Pain, Other Skin: negative: Rash, Lesions, José Luis, Bruising, Other - Medications/Allergies Allergies/Adverse Reactions: Allergies Allergy/AdvReac Type Severity Reaction Status Date / Time sulfamethoxazole Allergy Unknown Verified 07/15/18 11:23 [From Bactrim] trimethoprim [From Bactrim] Allergy Unknown Verified 07/15/18 11:23 vancomycin Allergy Verified 11/09/18 23:09 Medications: Current Medications Acetaminophen (Tylenol) 650 mg PO Q4H PRN PRN Reason: Headache/Fever/Mild Pain (1-3) Last Admin: 11/10/18 20:21 Dose: 650 mg Acetaminophen/Codeine Phosphate (Tylenol #3) 1 tab PO Q6H PRN PRN Reason: Pain Last Admin: 11/11/18 03:55 Dose: 1 tab Hydrocodone Bitart/Acetaminophen ([place] 5/325) 1 tab PO Q4H PRN PRN Reason: Moderate Pain (4-6) Last Admin: 11/11/18 00:10 Dose: 1 tab Artificial Tears (Tears Naturale) 2 drop EA EYE PRN PRN PRN Reason: Dry Eyes Aspirin (Aspirin Chewable) 81 mg PO DAILY [facility] Last Admin: 11/11/18 07:45 Dose: 81 mg Bisacodyl (Dulcolax) 10 mg PO DAILYPRN PRN PRN Reason: Constipation Clopidogrel Bisulfate (Plavix) 75 mg PO DAILY [facility] Last Admin: 11/11/18 07:45 Dose: 75 mg Dextrose/Water (Dextrose 50%) 25 gm SLOW IVP PRN PRN PRN Reason: Hypoglycemia Enoxaparin Sodium (Lovenox) 40 mg SC 0900 [facility] Last Admin: 11/11/18 07:46 Dose: 40 mg Famotidine (Pepcid) 20 mg PO BID [facility] Last Admin: 11/11/18 07:45 Dose: 20 mg Furosemide (Lasix) 40 mg PO DAILY [facility] Last Admin: 11/11/18 07:46 Dose: 40 mg Glucagon (Glucagon) 1 mg IM PRN PRN PRN Reason: Hypoglycemia Guaifenesin (Robitussin Sf) 200 mg PO Q4H PRN PRN Reason: Cough Hydralazine HCl (Apresoline) 10 mg SLOW IVP Q4H PRN PRN Reason: SBP > 180 and HR < 70 Linezolid 600 mg/ Device 300 mls @ 150 mls/hr IVPB Q12HR [facility] Last Admin: 11/11/18 09:14 Dose: 300 mls Dextrose/Water (D5w) 1,000 mls @ 0 mls/hr IV .Q0M PRN PRN Reason: Hypoglycemia Piperacillin Sod/Tazobactam (Sod 3.375 gm/ Sodium Chloride) 100 mls @ 200 mls/ hr IVPB 0200,0800,1400,2000 [facility] Last Admin: 11/11/18 07:45 Dose: 100 mls Insulin Glargine 25 units/ (Miscellaneous Medication) 0.25 mls @ 0 mls/hr SC HS [facility] Insulin Glargine 25 units/ (Miscellaneous Medication) 0.25 mls @ 0 mls/hr SC QAM [facility] Last Admin: 11/11/18 09:21 Dose: 0.25 mls Insulin Human Lispro (Humalog) 0 units SC .MILD SLIDING SCALE PRN PRN Reason: Mild Correctional Scale Last Admin: 11/11/18 05:32 Dose: 6 unit Insulin Human Lispro (Humalog) 0 units SC .BEDTIME SLIDING SC PRN PRN Reason: Bedtime Correctional Scale Last Admin: 11/10/18 21:22 Dose: 5 unit Lisinopril (Zestril) 20 mg PO DAILY [facility] Last Admin: 11/11/18 09:14 Dose: 20 mg Loperamide HCl (Imodium) 2 mg PO PRN PRN PRN Reason: Diarrhea/Loose Stools Loratadine (Claritin) 10 mg PO DAILYPRN PRN PRN Reason: Sinus Symptoms Mineral Oil/White Petrolatum (Eucerin Cream) 0 gm TOP BIDPRN PRN PRN Reason: Dry Skin Miscellaneous Medication (Pharmacy To Dose) 1 each IVPB PRN PRN PRN Reason: Pharmacy to dose Morphine Sulfate (Morphine) 2 mg IV Q4H PRN PRN Reason: Pain Ondansetron HCl (Zofran Odt) 4 mg PO Q6H PRN PRN Reason: Nausea/Vomiting Ondansetron HCl (Zofran) 4 mg IVP Q6H PRN PRN Reason: Nausea/Vomiting Rosuvastatin Calcium (Crestor) 40 mg PO [facility] Last Admin: 11/10/18 20:22 Dose: 40 mg Saccharomyces Boulardii (Florastor) 250 mg PO DAILY [facility] Last Admin: 11/11/18 07:45 Dose: 250 mg Senna/Docusate Sodium (Senokot S) 2 tab PO BID PRN PRN Reason: Constipation Sodium Chloride (Flush - Normal Saline) 10 ml IVF Q12HR [facility] Last Admin: 11/11/18 07:46 Dose: 10 ml Sodium Chloride (Flush - Normal Saline) 10 ml IVF PRN PRN PRN Reason: Saline Flush Sodium Chloride ([place] Nasal [place] 0.65%) 0 ml EA NARE QIDPRN PRN PRN Reason: Nasal Congestion Throat Lozenges (Cepastat Lozenges) 1 brendan PO Q2H PRN PRN Reason: Sore Throat Zolpidem Tartrate (Ambien) 5 mg PO HSPRN PRN PRN Reason: Insomnia
[2018-11-11] MEDS: Acetaminophen 325 MG TAB PO PRN (13:29)
[2018-11-11] MEDS: Rosuvastatin 20 MG TAB PO SCH (20:47)
[2018-11-11] MEDS ORDERED: Insulin Glargine 25 UNITS in Pre-Filled Syringe 1 EACH SC SCH (21:00)
[2018-11-11] MEDS ORDERED: Insulin Glargine 15 UNITS in Pre-Filled Syringe 1 EACH SC SCH (21:00)
[2018-11-12] MEDS: Piperacillin/Tazobactam 3.375 GM in Sodium Chloride 0.9% 100 ML IVPB SCH ×4 (02:01→20:24)
[2018-11-12] MEDS: HumaLOG 300 UNITS/3 ML VIAL SC PRN ×3 (06:06→17:17)
[2018-11-12] MEDS: Enoxaparin Sodium 40 MG/0.4 ML SYRINGE SC SCH (07:33)
[2018-11-12] MEDS: Lisinopril 20 MG TAB PO SCH (07:34)
[2018-11-12] MEDS: Saccharomyces boulardii 250 MG CAP PO SCH (07:34)
[2018-11-12] MEDS: Clopidogrel Bisulfate 75 MG TAB PO SCH (07:34)
[2018-11-12] MEDS: Furosemide 40 MG TAB PO SCH (07:34)
[2018-11-12] MEDS: Acetaminophen 325 MG TAB PO PRN (07:34)
[2018-11-12] MEDS: Famotidine 20 MG TAB PO SCH ×2 (07:34→20:23)
[2018-11-12] MEDS: Linezolid 600 MG in Premix Bag 1 BAG IVPB SCH ×2 (08:22→21:43)
[2018-11-12] MEDS: Insulin Glargine 25 UNITS in Pre-Filled Syringe 1 EACH SC SCH (08:24)
--- NOTE | 2018-11-12 09:46 | PDOC.PN ---
- Subjective Encounter Start Date: 11/12/18 Encounter Start Time: 11:00 Subjective: Patient reports some mild improvement in foot swelling. Still TTP over top -: of foot. No Fever/Chills. - Objective Resuscitation Status - Order Detail: 11/09/18 23:11 Resuscitation Status Routine Resuscitation Status: FULL: Full Resuscitation MAR Reviewed: Yes Vital Signs & Weight: Vital Signs (12 hours) Temp Pulse Resp BP BP Pulse Ox 11/12/18 07:51 99.7 F H 77 16 127/74 99 11/12/18 00:42 98.4 F 73 16 123/72 97 Weight Admit Weight 250 lb 0.067 oz Weight 250 lb 0.067 oz I&O: 11/11/18 11/12/18 11/13/18 06:59 06:59 06:59 Intake Total 2400 1770 Output Total 2900 1650 Balance -500 120 Result Diagrams: 11/11/18 05:17 11/11/18 05:17 Additional Labs: Accuchecks 11/12/18 11/11/18 11/11/18 05:12 21:12 15:46 POC Glucose 354 H 506 H 409 H 11/11/18 11/09/18 11:56 17:53 POC Glucose 369 H Greater than 550 H* Phys Exam - Physical Examination Constitutional: NAD HEENT: moist MMs Respiratory: no wheezing, no rales, no rhonchi Cardiovascular: RRR, no significant murmur Gastrointestinal: soft, positive bowel sounds right 2nd toe with dressing in place, some dependent ecchymosis, mild TTP top of foot, 1+pitting edema, no erythema Psychiatric: normal affect, A&O x 3 Dx/Plan (1) Diabetic foot infection Code(s): E11.628 - TYPE 2 DIABETES MELLITUS WITH OTHER SKIN COMPLICATIONS; L08.9 - LOCAL INFECTION OF THE SKIN AND SUBCUTANEOUS TISSUE, UNSP Status: Acute Comment: right foot ulcer with cellulitis, on Zosyn and Zyvox (due to Vanc allergy), MRI negative for osteo or fluid collection (2) Diabetes type 2, uncontrolled Code(s): E11.65 - TYPE 2 DIABETES MELLITUS WITH HYPERGLYCEMIA Status: Chronic Qualifiers: Glycemic state: with hyperglycemia Qualified Code(s): E11.65 - Type 2 diabetes mellitus with hyperglycemia Comment: Blood sugars still running in the 300s, will increase Lantus to 35 units BID (3) Dyslipidemia Code(s): E78.5 - HYPERLIPIDEMIA, UNSPECIFIED Status: Chronic (4) Hypertension Code(s): I10 - ESSENTIAL (PRIMARY) HYPERTENSION Status: Chronic (5) Obesity (BMI 30-39.9) Code(s): E66.9 - OBESITY, UNSPECIFIED Status: Chronic - Plan cont current plan of care, continue antibiotics, DVT proph w/lovenox Wound Care -: Likely transition to oral abx tomorrow. * . - Discharge Day Encounter end time: 11:30
[2018-11-12] MEDS: Rosuvastatin 20 MG TAB PO SCH (20:22)
[2018-11-12] MEDS ORDERED: Insulin Glargine 35 UNITS in Pre-Filled Syringe 1 EACH SC SCH (21:00)
[2018-11-13] MEDS: Piperacillin/Tazobactam 3.375 GM in Sodium Chloride 0.9% 100 ML IVPB SCH ×2 (01:26→09:34)
[2018-11-13] MEDS: Acetaminophen/Codeine 30-300mg Tablet PO PRN (04:48)
[2018-11-13] MEDS: HumaLOG 300 UNITS/3 ML VIAL SC PRN ×2 (05:52→11:57)
[2018-11-13] MEDS ORDERED: Insulin Glargine 35 UNITS in Pre-Filled Syringe 1 EACH SC SCH (09:00)
--- NOTE | 2018-11-13 09:24 | PDOC.PN ---
- Subjective Encounter Start Date: 11/13/18 Encounter Start Time: 10:50 Subjective: Patient reports pain and swelling continue to decrease. Able to -: ambulate. No fever/chills. - Objective Resuscitation Status - Order Detail: 11/09/18 23:11 Resuscitation Status Routine Resuscitation Status: FULL: Full Resuscitation MAR Reviewed: Yes Vital Signs & Weight: Vital Signs (12 hours) Temp Pulse Resp BP BP Pulse Ox 11/13/18 07:05 98.5 F 52 L 14 141/76 H 96 11/13/18 03:07 98.1 F 87 18 152/74 H 98 11/12/18 23:02 98.7 F 79 18 143/85 H 99 Weight Admit Weight 250 lb 0.067 oz Weight 250 lb 0.067 oz I&O: 11/12/18 11/13/18 11/14/18 06:59 06:59 06:59 Intake Total 1770 2160 Output Total 1650 1700 Balance 120 460 Result Diagrams: 11/11/18 05:17 11/11/18 05:17 Additional Labs: Accuchecks 11/13/18 11/12/18 11/12/18 05:47 20:52 15:42 POC Glucose 163 H 200 H 283 H 11/12/18 10:28 POC Glucose 319 H Phys Exam - Physical Examination Constitutional: NAD HEENT: moist MMs Respiratory: no wheezing, no rales, no rhonchi Cardiovascular: RRR, no significant murmur Gastrointestinal: soft wound on toe dressed, no surrounding erythema, some edema and mild TTP Neurological: non-focal, moves all 4 limbs Psychiatric: normal affect, A&O x 3 Dx/Plan (1) Diabetic foot infection Code(s): E11.628 - TYPE 2 DIABETES MELLITUS WITH OTHER SKIN COMPLICATIONS; L08.9 - LOCAL INFECTION OF THE SKIN AND SUBCUTANEOUS TISSUE, UNSP Status: Acute Comment: right foot ulcer with cellulitis, on Zosyn and Zyvox (due to Vanc allergy), MRI negative for osteo or fluid collection, switch to oral antibiotics today (2) Diabetes type 2, uncontrolled Code(s): E11.65 - TYPE 2 DIABETES MELLITUS WITH HYPERGLYCEMIA Status: Chronic Qualifiers: Glycemic state: with hyperglycemia Qualified Code(s): E11.65 - Type 2 diabetes mellitus with hyperglycemia Comment: Increased Lantus to 35u BID and blood sugar much better this AM (3) Dyslipidemia Code(s): E78.5 - HYPERLIPIDEMIA, UNSPECIFIED Status: Chronic (4) Hypertension Code(s): I10 - ESSENTIAL (PRIMARY) HYPERTENSION Status: Chronic (5) Obesity (BMI 30-39.9) Code(s): E66.9 - OBESITY, UNSPECIFIED Status: Chronic - Plan cont current plan of care, continue antibiotics Transition to oral abx and home today -: F/u with corrections sergeant next week * . - Discharge Day Encounter end time: 11:20
[2018-11-13] MEDS: Famotidine 20 MG TAB PO SCH (09:34)
[2018-11-13] MEDS: Clopidogrel Bisulfate 75 MG TAB PO SCH (09:35)
[2018-11-13] MEDS: Lisinopril 20 MG TAB PO SCH (09:35)
[2018-11-13] MEDS: Furosemide 40 MG TAB PO SCH (09:35)
[2018-11-13] MEDS: Saccharomyces boulardii 250 MG CAP PO SCH (09:35)
[2018-11-13] MEDS: Enoxaparin Sodium 40 MG/0.4 ML SYRINGE SC SCH (09:35)
[2018-11-13] MEDS: Linezolid 600 MG in Premix Bag 1 BAG IVPB SCH (09:36)
[2018-11-13 11:50] VITALS: BP 150/78; TEMP 98.2
[2018-11-13] MEDS ORDERED: Amoxicillin/Potassium Clav 875 MG TAB PO SCH (21:00)
--- NOTE | 2018-11-14 03:05 | DIS ---
DATE OF ADMISSION: 11/09/2018 DATE OF DISCHARGE: 11/13/2018 PRIMARY CARE PHYSICIAN: [place] [place]. REASON FOR ADMISSION: Diabetic foot infection. DIAGNOSES AT DISCHARGE: 1. Diabetic foot infection, osteomyelitis ruled out. 2. Diabetes mellitus type 2, insulin dependent. 3. Dyslipidemia. 4. Hypertension. 5. Obesity. CONSULTATIONS: None. PROCEDURES: 1. X-ray of the right foot showing soft tissue swelling. No evidence of osteomyelitis. 2. Lower extremity MRI of the right foot showing soft tissue swelling of the 2nd toe. No evidence of abscess or osteomyelitis. PERTINENT LABORATORY: White blood cell count normal at 6.1. Blood sugars were elevated during hospitalization until the last day we increased her Lantus and it came down to 163. Her C-reactive protein was elevated at 1.38. SUMMARY OF HOSPITAL COURSE: This is a 63-year-old female with a known history of diabetes mellitus type 2 on insulin. She went to see her fabrication welder, Dr. Bo who examined her foot and became worried about infection on her right 2nd toe. I told her to come to the hospital. Here, she was found to have ulcer and infection in that foot along with swelling and some pain to palpation. The patient was started on Zosyn as well as Zyvox due to vancomycin allergy. She had x-ray and MRI as above. No evidence of osteomyelitis. She had some improvement in tenderness and swelling of the foot. She also had wound care while she was in the hospital. On the day of discharge, the patient was doing better and was transitioned over to oral antibiotics. DISCHARGE MANAGEMENT: Discharged home. FOLLOWUP: Follow up with Dr. Bo in [place] in 1 week. ACTIVITY: As tolerated. DIET: Diabetic diet. THERAPY INSTRUCTIONS: Wound care. MEDICATIONS: 1. Augmentin 875 mg twice a day, 20 tabs dispensed, and resume all home medications. 2. Crestor 40 mg at night. 3. Aspirin 81 mg daily. 4. Furosemide 40 mg daily. 5. Humalog sliding scale as previous. 6. Lantus insulin 70 units subcu at night. Job ID: [id number] [facility]
== END 2018-11-13 15:23 | disposition home or self-care (01) | DRG 639 ==
LOC: ERS 17:38 → SJJU 20:16 → ERS 21:53
PROVIDERS: ADMIT Internal Medicine; ATTEND Internal Medicine
DX: E11.621 Type 2 diabetes mellitus with foot ulcer (principal); L97.519 Non-pressure chronic ulcer of other part of right foot with unspecified severity; L03.031 Cellulitis of right toe; H54.40 Blindness, one eye, unspecified eye; E78.5 Hyperlipidemia, unspecified; I10 Essential (primary) hypertension; G43.909 Migraine, unspecified, not intractable, without status migrainosus; E11.65 Type 2 diabetes mellitus with hyperglycemia; E66.9 Obesity, unspecified; Z68.36 Body mass index [BMI] 36.0-36.9, adult; Z79.82 Long term (current) use of aspirin; Z79.4 Long term (current) use of insulin; Z86.73 Personal history of transient ischemic attack (TIA), and cerebral infarction without residual deficits
CPT/HCPCS: 36415; 36416; 80048; 80053; 82330; 82803; 83930; 85025; 85652; 86140; 87040; 96365; 96375; J1650; J1815; J2020; J2543; J3370; J7050

== ENCOUNTER 2019-05-27 12:24 | Emergency (ER) | payer MEDICARE ==
[2019-05-27 13:35] LABS: #Basophils 0.1 thou/uL (0.0-0.2); #Eosinphils 0.1 thou/uL (0.0-0.7); #Lymphocytes 1.6 thou/uL (1.20-3.40); #Monocytes 0.5 thou/uL (0.11-0.59); #Neutrophils 2.3 thou/uL (1.40-6.50); %Basophils 1.5 % (0.0-1.0); %Eosinophils 2.8 % (0.0-10.0); %Lymphocytes 35.3 % (21.0-51.0); %Neutrophils 49.5 % (42.0-75.0); Hemoglobin 11.8 g/dL (12.0-16.0); Mean Corpuscular HGB CONC 33.6 g/dL (32.0-36.0); Mean Corpuscular Hemoglobin 29.7 pg (27.0-31.0); Mean Corpuscular Volume 88.3 fL (78.0-98.0); Mean Platelet Volume 8.8 fL (7.4-10.4); Platelet Count 164 thou/uL (130-400); RBC Distribution Width 11.7 % (11.5-14.5); Red Blood Cell (RBC) Count 3.99 mill/uL (4.20-5.40); White Blood Cell (WBC) Count 4.6 thou/uL (4.8-10.8)
[2019-05-27 13:58] LABS: ALT (SGPT) 8 U/L (8-55); AST (SGOT) 9 U/L (5-34); Albumin 3.2 g/dL (3.4-4.8); Alkaline Phosphatase 50 U/L (40-150); Anion Gap 10 mmol/L (10-20); BUN (Urea Nitrogen) 8 mg/dL (9.8-20.1); Bilirubin, Total 0.3 mg/dL (0.2-1.2); Calc. Creatinine Clearance 0 mL/min (70-130); Calcium 8.9 mg/dL (7.8-10.44); Carbon Dioxide 29 mmol/L (23-31); Chloride 101 mmol/L (98-107); Estimated GFR-MDRD Greater than 90; Globulin 3.1 g/dL (2.4-3.5); Glucose 370 mg/dL (80-115); Potassium 3.3 mmol/L (3.5-5.1); Protein, Total 6.3 g/dL (6.0-8.3); Sodium 137 mmol/L (136-145)
[2019-05-27 15:10] LABS: Bilirubin Negative (Negative); Blood, Urine Trace (Negative); Clarity Clear (Clear); Glucose, Urine (Dipstick) Greater than 1000 mg/dL (Negative); Leukocyte 25 Leu/uL (Negative); Nitrite Negative (Negative); Protein, Urine (Dipstick) 70 mg/dL (Neg-Trace); RBC/HPF 0-3 HPF (0-3); Urobilinogen Normal mg/dL (Less than 2); WBC/HPF 0-3 HPF (0-3)
[2019-05-27 15:26] LABS: Bacteria/HPF Rare-Few HPF (None Seen)
== END 2019-05-27 16:27 | disposition home or self-care (01) ==
LOC: ERS 12:24
DX: R31.9 Hematuria, unspecified (principal); E10.65 Type 1 diabetes mellitus with hyperglycemia; E78.5 Hyperlipidemia, unspecified; I10 Essential (primary) hypertension; G43.909 Migraine, unspecified, not intractable, without status migrainosus; F41.9 Anxiety disorder, unspecified; Z79.82 Long term (current) use of aspirin; Z79.899 Other long term (current) drug therapy
CPT/HCPCS: 36415; 36416; 80053; 81003; 81015; 85025; 87086; 99284

== ENCOUNTER 2019-06-19 13:40 | Observation (INO) | payer MEDICARE ==
[2019-06-19 14:11] LABS: #Basophils 0.1 thou/uL (0.0-0.2); #Eosinphils 0.1 thou/uL (0.0-0.7); #Lymphocytes 1.8 thou/uL (1.20-3.40); #Monocytes 0.6 thou/uL (0.11-0.59); #Neutrophils 2.4 thou/uL (1.40-6.50); %Basophils 1.4 % (0.0-1.0); %Lymphocytes 35.8 % (21.0-51.0); %Monocytes 11.1 % (0.0-10.0); %Neutrophils 49.7 % (42.0-75.0); Hemoglobin 11.9 g/dL (12.0-16.0); Mean Corpuscular HGB CONC 35.3 g/dL (32.0-36.0); Mean Corpuscular Volume 87.9 fL (78.0-98.0); Mean Platelet Volume 9.5 fL (7.4-10.4); Platelet Count 161 thou/uL (130-400); RBC Distribution Width 11.9 % (11.5-14.5); Red Blood Cell (RBC) Count 3.84 mill/uL (4.20-5.40); White Blood Cell (WBC) Count 4.9 thou/uL (4.8-10.8)
[2019-06-19 14:14] LABS: Base Excess-Venous 6.5 mmol/L (-2.0 to 3.0); Bicarbonate (HCO3v) 31.9 mmol/L (22.0-28.0); CO2 Tension (PvCO2) 48.5 mmHg (40.0-50.0); Calcium, Ionized 1.13 mmol/L (See Comments:); Chloride 100 mmol/L (98-107); Hemoglobin - Calc 11.1 g/dL (12.0-16.0); Potassium 3.1 mmol/L (3.5-5.1); Sodium 141 mmol/L (138-145); T. Carbon Dioxide 33.4 mmol/L (22.0-28.0); vO2 Saturation-calc 81.3 % (60.0-85.0)
[2019-06-19 14:27] LABS: ALT (SGPT) 8 U/L (8-55); AST (SGOT) 10 U/L (5-34); Alkaline Phosphatase 54 U/L (40-150); Anion Gap 12 mmol/L (10-20); BUN (Urea Nitrogen) 11 mg/dL (9.8-20.1); Bilirubin, Total 0.3 mg/dL (0.2-1.2); CK (CPK) 106 U/L (29-168); Calc. Creatinine Clearance 0 mL/min (70-130); Calcium 8.6 mg/dL (7.8-10.44); Carbon Dioxide 28 mmol/L (23-31); Chloride 100 mmol/L (98-107); Estimated GFR-MDRD 88; Glucose 424 mg/dL (80-115); Lipase 21 U/L (8-78); Sodium 137 mmol/L (136-145)
[2019-06-19 14:57] LABS: CKMB 3.1 ng/mL (0-6.6)
[2019-06-19 15:16] LABS: Magnesium 1.7 mg/dL (1.6-2.6); Phosphorus 2.8 mg/dL (2.3-4.7)
--- NOTE | 2019-06-19 15:25 | RAD ---
PORTABLE CHEST 1 VIEW: Date: 06/19/19 Time: 1434 hours HISTORY: Chest pain. FINDINGS: Comparison made with exam of 09/30/18. The heart size is borderline. No lobar consolidation, pneumothoraces, alisa pulmonary edema, or pleur al effusions are seen. IMPRESSION: No acute process. POS: [facility]
[2019-06-19 18:10] LABS: Troponin I 0.027 ng/mL (< 0.028)
[2019-06-19 18:16] VITALS: BMI 29.7
[2019-06-19] MEDS ORDERED: Dextrose 5% in Water 1,000 ML IV PRN (18:47)
[2019-06-19] MEDS ORDERED: HumaLOG 300 UNITS/3 ML VIAL SC PRN (18:47)
[2019-06-19] MEDS ORDERED: Dextrose 50% Abboject 50 ML SYRINGE SLOW IVP PRN (18:47)
[2019-06-19] MEDS ORDERED: Acetaminophen 325 MG TAB PO PRN (18:48)
[2019-06-19] MEDS ORDERED: Ondansetron PF 4 MG/2 ML Vial IVP PRN (18:48)
[2019-06-19] MEDS ORDERED: Ondansetron ODT 4 MG TAB PO PRN (18:48)
[2019-06-19] MEDS ORDERED: hydrALAZINE 20 MG/ML VIAL SLOW IVP PRN (18:50)
[2019-06-19 20:30] LABS: Troponin I 0.033 ng/mL (< 0.028)
[2019-06-19] MEDS ORDERED: Rosuvastatin 20 MG TAB PO SCH (21:00)
[2019-06-19] MEDS: NS 0.9% w/ 40 MEQ KCL 1,000 ML IV SCH ×2 (21:13→21:54)
[2019-06-20] MEDS: NS 0.9% w/ 40 MEQ KCL 1,000 ML IV SCH ×2 (03:15→12:49)
--- NOTE | 2019-06-20 03:41 | HP ---
PRIMARY CARE PHYSICIAN: [facility]. CHIEF COMPLAINT: Elevated blood sugar, nausea, and acute confusion. HISTORY OF PRESENT ILLNESS: Ms. Berg is a 63-year-old female with past medical history of insulin-dependent type 2 diabetes mellitus, hypertension, hyperlipidemia, gastroesophageal reflux disease, migraine headaches, and history of CVA, who had presented to [facility] earlier today after she experienced some chest tightness earlier this morning, which has now resolved. The patient and family report shopping at a local grocery store when the patient felt some mild chest tightness, and family noticed that the patient was also acting slightly confused, which usually happens when her blood sugars run high. The patient denied taking her insulin this morning prior to going to the grocery store, she had called EMS, blood sugar in the 500s, she was then later transferred to [facility] for further workup. Upon arriving, her blood sugars were found to be 424; therefore, she was started on IV fluid hydration with normal saline, her potassium was also found to be low at 3.0; therefore, she was given potassium chloride for further replacement. Other lab work showed an indeterminate troponin of 0.029, which trended down to 0.027, then 0.033; beta-hydroxybutyrate was normal at 0.26 with no signs of DKA at this time. Magnesium and phosphorus were also normal. CK-MB was normal at 3.1. Lipase was 21. She underwent a portable chest x-ray, which was also found to be normal and showed no acute process. The patient's blood pressure was also noted to be slightly elevated; however, her other vital signs were stable, she had denied any fever, chills, any headache, blurred vision, or dizziness, she had denied any further chest pain, palpitations, shortness of breath, or any abdominal pain. She states she felt kind of foggy in her head and overall not felt well. She also complained of mild nausea without vomiting. REVIEW OF SYSTEMS: All other systems reviewed and found to be negative unless mentioned in HPI. PAST MEDICAL HISTORY: Hypertension, hyperlipidemia, diabetes mellitus type 2, insulin dependent; gastroesophageal reflux disease, migraine headaches, and history of stroke. PAST SURGICAL HISTORY: Left foot surgery, bilateral eye surgery, dental surgery, appendectomy, hysterectomy, thoracotomy, and tonsillectomy. PSYCHIATRIC HISTORY: Includes anxiety. SOCIAL HISTORY: The patient denies alcohol, tobacco, or illicit drug use. KNOWN ALLERGIES: Vancomycin and Bactrim/sulfa. CURRENT HOME MEDICATIONS: 1. Aspirin 81 mg daily. 2. Clopidogrel 75 mg daily. 3. Furosemide 40 mg oral daily. 4. NovoLog insulin sliding scale. 5. Lisinopril 20 mg oral daily. 6. Simvastatin 40 mg oral daily. PHYSICAL EXAMINATION: VITAL SIGNS: BP 161/79, pulse 79, respirations 18, temperature 98.9, and O2 saturation 96% on room air. GENERAL: The patient is awake, alert, and oriented x2 to person and place only. She is currently lying comfortably in bed and in no acute distress. HEENT: Atraumatic, normocephalic. Moist mucous membranes noted. NECK: Soft, supple. Trachea midline. CARDIOVASCULAR: Positive S1 and S2. Regular rate and rhythm. No murmur auscultated. RESPIRATORY: Clear to auscultation bilaterally. No wheezes, rales, or rhonchi. ABDOMEN: Soft, nontender. Bowel sounds present. MUSCULOSKELETAL: Strength 5+ bilaterally. The patient appears to be at her baseline. Trace edema noted and the left second toe amputated. NEUROLOGIC: Cranial nerves 2 through 12 grossly intact. No focal deficits noted. Speech intact and normal. Gait not assessed. The patient is oriented to person and place only. She states it is 2009. SKIN: Warm, dry, and intact. No rashes. No ulceration noted. PSYCHIATRIC: Good mood and affect. LABORATORY DATA: WBC 4.9, RBC 3.84, hemoglobin 11.9, platelets 161. Sodium 137, potassium 3.0, anion gap 12, BUN 11, creatinine 0.79, estimated GFR 88, glucose 306, phosphorus 2.8, and magnesium 1.7. CK-MB 3.1. Troponin 0.029, 0.027, and 0.033. Lipase 21. Beta-hydroxybutyrate 0.26. DIAGNOSTIC IMAGING: Portable chest x-ray shows no acute process. ASSESSMENT AND PLAN: 1. Chest pain. The patient is currently asymptomatic at this time. Serial troponins were ordered and found to be in the indeterminate range. This has also been seen in the past with her previous visits. She will undergo ACS rule out with a stress test in the morning. 2. Hyperglycemia with history of diabetes mellitus/insulin-dependent, the patient will be started on insulin sliding scale, with frequent Accu-Cheks. The patient reports not taking her home insulin this morning and this is likely the cause of her elevated blood sugars. 3. Acute encephalopathy. This is likely secondary to above. The patient's family report this is her baseline. However, if this worsens, we will obtain further imaging. 4. Hypertension. The patient will be resumed on her home regimen and blood pressure and other vital signs will be monitored closely. 5. Hyperlipidemia. Continue home statin. 6. Gastroesophageal reflux disease. At home, continue PPI. 7. Deep venous thrombosis and gastrointestinal prophylaxis. 8. Code status, full code. 9. Surrogate decision makers are her children, Ian and Mya. DISPOSITION: Pending further workup and clinical findings. Job ID: [id number]
[2019-06-20 05:49] LABS: #Basophils 0.1 thou/uL (0.0-0.2); #Eosinphils 0.2 thou/uL (0.0-0.7); #Lymphocytes 2.1 thou/uL (1.20-3.40); #Monocytes 0.5 thou/uL (0.11-0.59); %Basophils 0.9 % (0.0-1.0); %Eosinophils 3.6 % (0.0-10.0); %Lymphocytes 36.6 % (21.0-51.0); %Monocytes 8.3 % (0.0-10.0); %Neutrophils 50.6 % (42.0-75.0); Hemoglobin 12.1 g/dL (12.0-16.0); Mean Corpuscular HGB CONC 34.6 g/dL (32.0-36.0); Mean Corpuscular Hemoglobin 30.8 pg (27.0-31.0); Mean Corpuscular Volume 89.1 fL (78.0-98.0); Mean Platelet Volume 9.1 fL (7.4-10.4); Platelet Count 167 thou/uL (130-400); RBC Distribution Width 12.1 % (11.5-14.5); Red Blood Cell (RBC) Count 3.93 mill/uL (4.20-5.40); White Blood Cell (WBC) Count 5.8 thou/uL (4.8-10.8)
[2019-06-20 06:04] LABS: Anion Gap 11 mmol/L (10-20); BUN (Urea Nitrogen) 8 mg/dL (9.8-20.1); Calc. Creatinine Clearance 129 mL/min (70-130); Calcium 8.9 mg/dL (7.8-10.44); Carbon Dioxide 25 mmol/L (23-31); Chloride 107 mmol/L (98-107); Estimated GFR-MDRD Greater than 90; Glucose 303 mg/dL (80-115); Sodium 139 mmol/L (136-145)
[2019-06-20 08:54] LABS: Troponin I 0.031 ng/mL (< 0.028)
[2019-06-20] MEDS ORDERED: Lisinopril 20 MG TAB PO SCH (09:00)
[2019-06-20] MEDS ORDERED: Furosemide 40 MG TAB PO SCH (09:00)
[2019-06-20] MEDS ORDERED: Aspirin Chewable 81 MG TAB PO SCH (09:00)
[2019-06-20] MEDS ORDERED: Atorvastatin Calcium 20 MG TAB PO SCH (09:00)
[2019-06-20] MEDS ORDERED: Clopidogrel Bisulfate 75 MG TAB PO SCH (09:00)
[2019-06-20] MEDS ORDERED: Enoxaparin Sodium 40 MG/0.4 ML SYRINGE SC SCH (09:00)
--- NOTE | 2019-06-20 12:48 | NM ---
EXAM: Nuclear medicine cardiac perfusion examination with ejection fraction HISTORY: Chest pain; diabetes and hypertension TECHNIQUE: Rest images: 9.4 mCi technetium 99m sestamibi Stress images: 31 mCi of technetium 9M sestamibi; Adenosine COMPARISON: 12/18/2017 FINDINGS: Tomographic images: No fixed or reversible perfusion defects. Gated images: Normal wall motion and ejection fraction of 51%. EDV: 111 mL LHR: 0.25 TID: 1.07 IMPRESSION: No evidence of ischemia
[2019-06-20] MEDS: HumaLOG 300 UNITS/3 ML VIAL SC PRN ×2 (13:09→17:52)
[2019-06-20 16:03] VITALS: BP 171/81; TEMP 99.6
== END 2019-06-20 19:04 | disposition home or self-care (01) ==
LOC: ERS 13:40 → 2SW 14:53
PROVIDERS: ADMIT Internal Medicine; ATTEND Internal Medicine
DX: R07.89 Other chest pain (principal); E11.65 Type 2 diabetes mellitus with hyperglycemia; G93.40 Encephalopathy, unspecified; I10 Essential (primary) hypertension; E78.5 Hyperlipidemia, unspecified; K21.9 Gastro-esophageal reflux disease without esophagitis; G43.909 Migraine, unspecified, not intractable, without status migrainosus; F41.9 Anxiety disorder, unspecified; Z86.73 Personal history of transient ischemic attack (TIA), and cerebral infarction without residual deficits; Z88.2 Allergy status to sulfonamides; Z88.1 Allergy status to other antibiotic agents; Z79.4 Long term (current) use of insulin; Z79.82 Long term (current) use of aspirin; Z79.899 Other long term (current) drug therapy
CPT/HCPCS: 71045; 78452; 80048; 80053; 82010; 82330; 82435; 82550; 82553; 82803; 82962 ×2; 83690; 83735; 83880; 83930; 84100; 84132; 84295; 84484 ×3; 85014; 85025 ×2; 93005; 93017; 96361 ×3; 96365; 96372; 97139; 99285; A9500; G0378 ×3; 36415; 36416; J1650; J3480